=== PATIENT | male | born 1940 | race Caucasian/White ===

== ENCOUNTER → 2019-05-09 | Day surgery (SDC) | payer OTHER ==
[2019-05-06 14:59] VITALS: BMI 29.0
[~2019-05-09] MED LIST: LACTATED RINGERS 1,000 ML IV SCH; LIDOCAINE 1% INJ 10MG/ML (20 ML MDV) ONE; PROPOFOL 10 MG/ML 20 ML VIAL IV ONE
[2019-05-09 09:12] VITALS: RESP 16; TEMP 97.7
--- NOTE | 2019-05-09 10:30 | P.PCN ---
Date of Procedure: 05/09/19 Procedure(s) Performed: Procedure: Total colonoscopy. Preoperative diagnosis: Screening for colon cancer, patient has history of polyps. Postoperative diagnosis: Mild sigmoid diverticulosis with no evidence of acute diverticulitis, strictures, polyps or cancer. Preparation: HalfLytely prep. Sedation: Was provided by anesthesia. Chief clinical history: The patient is a 78-year-old male who is scheduled for this evaluation for screening for neoplasia because of history of polyps. His last exam was 7 or 8 years ago. The patient does no abdominal complaints, bleeding or anemia. Procedure: With the patient on his left lateral decubitus position and after informed consent and adequate sedation, the perianal area was inspected and it did not show any fissures or fistulas. There were no masses felt on digital rectal examination. The Olympus CFH 190L video colonoscope was then inserted in the rectum in the usual fashion and advanced to the cecum. The mucosa appeared healthy. No polyps or tumors were seen. Occasional diverticular orifices seen scattered in the sigmoid with no evidence of acute diverticulitis or strictures. I retroflexed the endoscope in the rectum before the endoscope was withdrawn. The patient tolerated the procedure well. Plan: The patient was reassured. Discussed dietary measures. He will follow up with you as planned.
[2019-05-09 10:43] VITALS: BP 154/91; PULSE 67
== END ==
LOC: ORWHC2ENDO 07:48
DX: Z12.11 Encounter for screening for malignant neoplasm of colon (principal); Z86.010 Personal history of colon polyps; K57.30 Diverticulosis of large intestine without perforation or abscess without bleeding; R10.9 Unspecified abdominal pain; I10 Essential (primary) hypertension; M19.90 Unspecified osteoarthritis, unspecified site; K21.9 Gastro-esophageal reflux disease without esophagitis; Z79.899 Other long term (current) drug therapy; Z88.8 Allergy status to other drugs, medicaments and biological substances
CPT/HCPCS: G0121; J2001; J2704

== ENCOUNTER 2019-06-10 12:41 | Emergency (ER) | payer OTHER ==
[2019-06-10 12:48] VITALS: TEMP 97.5
[2019-06-10] MEDS ORDERED: SODIUM CHLORIDE 0.9% 1,000 ML IV STA (12:54)
--- NOTE | 2019-06-10 13:00 | ED ---
Neuro HPI - General Chief Complaint: Neuro Symptoms/Deficit Stated Complaint: Poss stroke Time Seen by Provider: 06/10/19 12:54 Source: patient, RN notes reviewed, old records reviewed Mode of arrival: ambulatory Limitations: no limitations - History of Present Illness Is the patient presenting with stroke symptoms?: No -: days(s) Initial Comments: This is a 70-year-old male the ER for evaluation. Patient coming of numbness tenderness of lips and mouth. Left-sided face. Symptoms began last night did resolve for manyrecurrent symptoms this morning and now the symptoms have again resolved. Patient recently off aspirin. Patient has no headache chest pain shortness with her bowel pain, currently is asymptomatic and denies complaint. No recent known is no headaches, no chest pain shortness breath or abdominal pain. Location: left face, other (Lips) History of same: No Place: home Quality: tingling Improves With: time Worsens With: none On Anticoagulants: No Associated Symptoms: denies other symptoms Treatments Prior to Arrival: none - Related Data Home Medications: Home Medications Medication Instructions Recorded Confirmed Losartan [Cozaar] 25 mg PO DAILY 05/06/19 06/10/19 Amoxic-Pot Clav 875-125Mg 1 tab PO BID 06/10/19 06/10/19 [Augmentin 875-125] Multivitamins, Thera [Multivitamin 1 tab PO DAILY 06/10/19 06/10/19 (formulary)] methylPREDNISolone [Medrol Dose See Taper PO DIRECTED 06/10/19 06/10/19 Pack] Allergies/Adverse Reactions: Allergies Allergy/AdvReac Type Severity Reaction Status Date / Time methocarbamol [From Robaxin] AdvReac MUSCLES Verified 06/10/19 13:07 BECAME VERY TIGHT" Review of Systems ROS Statement: Those systems with pertinent positive or pertinent negative responses have been documented in the HPI. ROS Other: All systems not noted in ROS Statement are negative. General Exam - General Exam Comments Initial Comments: NIH is 0 Limitations: no limitations General appearance: alert, in no apparent distress Head exam: Present: atraumatic, normocephalic, normal inspection Eye exam: Present: normal appearance, PERRL, EOMI. Absent: scleral icterus, conjunctival injection, periorbital swelling ENT exam: Present: normal exam, mucous membranes moist Neck exam: Present: normal inspection. Absent: tenderness, meningismus, lymphadenopathy Respiratory exam: Present: normal lung sounds bilaterally. Absent: respiratory distress, wheezes, rales, rhonchi, stridor Cardiovascular Exam: Present: regular rate, normal rhythm, normal heart sounds. Absent: systolic murmur, diastolic murmur, rubs, gallop, clicks GI/Abdominal exam: Present: soft, normal bowel sounds. Absent: distended, tenderness, guarding, rebound, rigid Extremities exam: Present: normal inspection, full ROM, normal capillary refill. Absent: tenderness, pedal edema, joint swelling, calf tenderness Back exam: Present: normal inspection Neurological exam: Present: alert, oriented X3, CN II-XII intact Psychiatric exam: Present: normal affect, normal mood Skin exam: Present: warm, dry, intact, normal color. Absent: rash Stroke MDM - Lab Data Result diagrams: 06/10/19 12:50 06/10/19 12:50 Lab Results 06/10/19 06/10/19 06/10/19 Range/Units 12:50 12:50 12:50 WBC 9.6 (3.8-10.6) k/uL RBC 4.93 (4.30-5.90) m/uL Hgb 13.6 (13.0-17.5) gm/dL Hct 41.5 (39.0-53.0) % MCV 84.2 (80.0-100.0) fL MCH 27.5 (25.0-35.0) pg MCHC 32.7 (31.0-37.0) g/dL RDW 14.4 (11.5-15.5) % Plt Count 343 (150-450) k/uL Neutrophils % 66 % Lymphocytes % 21 % Monocytes % 6 % Eosinophils % 5 % Basophils % 1 % Neutrophils # 6.3 (1.3-7.7) k/uL Lymphocytes # 2.0 (1.0-4.8) k/uL Monocytes # 0.6 (0-1.0) k/uL Eosinophils # 0.5 (0-0.7) k/uL Basophils # 0.1 (0-0.2) k/uL PT 9.6 (9.0-12.0) sec INR 0.9 (<1.2) APTT 22.6 (22.0-30.0) sec Sodium 139 (137-145) mmol/L Potassium 4.8 (3.5-5.1) mmol/L Chloride 103 (98-107) mmol/L Carbon Dioxide 27 (22-30) mmol/L Anion Gap 9 mmol/L BUN 29 H (9-20) mg/dL Creatinine 1.16 (0.66-1.25) mg/dL Est GFR (CKD-EPI)AfAm 70 (>60 ml/min/1.73 sqM) Est GFR (CKD-EPI)NonAf 60 (>60 ml/min/1.73 sqM) Glucose 104 H (74-99) mg/dL Calcium 9.9 (8.4-10.2) mg/dL Total Bilirubin 0.4 (0.2-1.3) mg/dL AST 22 (17-59) U/L ALT 26 (21-72) U/L Alkaline Phosphatase 95 (38-126) U/L Troponin I (0.000-0.034) ng/mL Total Protein 7.1 (6.3-8.2) g/dL Albumin 4.4 (3.5-5.0) g/dL 06/10/19 Range/Units 12:50 WBC (3.8-10.6) k/uL RBC (4.30-5.90) m/uL Hgb (13.0-17.5) gm/dL Hct (39.0-53.0) % MCV (80.0-100.0) fL MCH (25.0-35.0) pg MCHC (31.0-37.0) g/dL RDW (11.5-15.5) % Plt Count (150-450) k/uL Neutrophils % % Lymphocytes % % Monocytes % % Eosinophils % % Basophils % % Neutrophils # (1.3-7.7) k/uL Lymphocytes # (1.0-4.8) k/uL Monocytes # (0-1.0) k/uL Eosinophils # (0-0.7) k/uL Basophils # (0-0.2) k/uL PT (9.0-12.0) sec INR (<1.2) APTT (22.0-30.0) sec Sodium (137-145) mmol/L Potassium (3.5-5.1) mmol/L Chloride (98-107) mmol/L Carbon Dioxide (22-30) mmol/L Anion Gap mmol/L BUN (9-20) mg/dL Creatinine (0.66-1.25) mg/dL Est GFR (CKD-EPI)AfAm (>60 ml/min/1.73 sqM) Est GFR (CKD-EPI)NonAf (>60 ml/min/1.73 sqM) Glucose (74-99) mg/dL Calcium (8.4-10.2) mg/dL Total Bilirubin (0.2-1.3) mg/dL AST (17-59) U/L ALT (21-72) U/L Alkaline Phosphatase (38-126) U/L Troponin I <0.012 (0.000-0.034) ng/mL Total Protein (6.3-8.2) g/dL Albumin (3.5-5.0) g/dL - NIH Stroke Scale 1a. Level of Consciousness: (0) alert 1b. LOC Questions: (0) answers correctly 1c. LOC Commands: (0) performs tasks correctly 2. Best Gaze: (0) normal 3. Visual: (0) no visual loss 4. Facial Palsy: (0) normal symmetrical movement 5a. Motor Arm Left: (0) no drift 5b. Motor Arm Right: (0) no drift 6a. Motor Leg Left: (0) no drift 6b. Motor Leg Right: (0) no drift 7. Limb Ataxia: (0) absent 8. Sensory: (0) normal 9. Best Language: (0) no aphasia 10. Dysarthria: (0) normal 11. Extinction/Inattention: (0) no abnormality - Thrombolytic Inclusion/Exclusion Thrombolytic Exclusion Criteria: Symptom Onset > 3 Hours - Medical Decision Making 70 male the ER for evaluation of numbness and tingling of face left-sided face. Paresthesia-type symptoms. Patient encouraged is restart taking aspirin one full aspirin a day. Patient states his symptoms have resolved, is asymptomatic and will follow-up with primary care be discharged currently. - Radiology Data Radiology results: report reviewed (CT brain CTA had not negative for acute disease), image reviewed - EKG Data -: EKG Interpreted by Me (EKG shows NSR rate or 55 bradycardia, VT 150, QRS 90, QTc 413) Past Medical History Past Medical History: Hypertension, Osteoarthritis (OA) Additional Past Medical History / Comment(s): ABDOMINAL PAIN History of Any Multi-Drug Resistant Organisms: None Reported Past Surgical History: Orthopedic Surgery Additional Past Surgical History / Comment(s): LEFT KNEE SURGERY X2 , EXPLORATORY LAPAROTOMY , Past Anesthesia/Blood Transfusion Reactions: No Reported Reaction Past Psychological History: No Psychological Hx Reported Smoking Status: Former smoker Past Alcohol Use History: Occasional Past Drug Use History: None Reported - Past Family History Mother Family Medical History: No Reported History Course Vital Signs 06/10/19 06/10/19 06/10/19 12:43 12:55 13:10 Temperature 97.5 F L Pulse Rate 61 87 78 Respiratory 18 20 18 Rate Blood Pressure 175/79 154/102 147/89 O2 Sat by Pulse 97 99 99 Oximetry 06/10/19 06/10/19 06/10/19 13:25 13:40 14:40 Temperature Pulse Rate 70 64 50 L Respiratory 18 20 18 Rate Blood Pressure 155/91 147/89 145/59 O2 Sat by Pulse 96 98 94 L Oximetry - Reevaluation(s) Reevaluation #1: 06/10/19 15:04 medical record reviewed Reevaluation #2: 06/10/19 15:04 Patient refusing inpatient hospitalization for neurology evaluation Reevaluation #3: 06/10/19 15:05 Patient encouraged to start taking aspirin once daily Disposition Clinical Impression: Facial paresthesia Disposition: HOME SELF-CARE Condition: Good Instructions (If sedation given, give patient instructions): Paresthesia (ED) Is patient prescribed a controlled substance at d/c from ED?: No Referrals: [facility],Clinic [Primary Care Provider] - 1-2 days
[2019-06-10 13:15] LABS: Basophils # (A) 0.1 k/uL (0-0.2); Basophils % (A) 1 %; Eosinophils # (A) 0.5 k/uL (0-0.7); Eosinophils % (A) 5 %; HCT 41.5 % (39.0-53.0); HGB 13.6 gm/dL (13.0-17.5); Lymphocytes % (A) 21 %; MCH 27.5 pg (25.0-35.0); MCHC 32.7 g/dL (31.0-37.0); MCV 84.2 fL (80.0-100.0); Mean Platelet Volume 6.8; Monocytes # (A) 0.6 k/uL (0-1.0); Monocytes % (A) 6 %; Neutrophils # (A) 6.3 k/uL (1.3-7.7); Neutrophils % (A) 66 %; Platelet Count 343 k/uL (150-450); RBC 4.93 m/uL (4.30-5.90); RDW 14.4 % (11.5-15.5); WBC 9.6 k/uL (3.8-10.6)
[2019-06-10 13:23] LABS: Albumin 4.4 g/dL (3.5-5.0); Calcium 9.9 mg/dL (8.4-10.2); INR 0.9 (<1.2); Partial Thromboplastin Time 22.6 sec (22.0-30.0); Potassium 4.8 mmol/L (3.5-5.1); Prothrombin Time 9.6 sec (9.0-12.0); Total Bilirubin 0.4 mg/dL (0.2-1.3); Total Protein 7.1 g/dL (6.3-8.2)
--- NOTE | 2019-06-10 13:30 | XR ---
EXAMINATION TYPE: XR chest 2V DATE OF EXAM: 06/10/2019 COMPARISON: NONE HISTORY: Altered mental status TECHNIQUE: Frontal and lateral views of the chest are obtained. FINDINGS: There are overlying cardiac leads. Patient is rotated. Aorta is dense and possibly ectatic. There is no focal air space opacity, pleural effusion, or pneumothorax seen. The cardiac silhouette size is within normal limits. The osseous structures are intact, arthropathy is noted in the shoul ders, there is an old mid diaphyseal left clavicular fracture now healed. IMPRESSION: No acute cardiopulmonary process.
--- NOTE | 2019-06-10 13:37 | CT ---
EXAMINATION TYPE: CT brain wo con for TPA DATE OF EXAM: 06/10/2019 COMPARISON: 08/27/2010 INDICATION: Electrical feeling to lips DLP: 1038 mGycm, Automated exposure control for dose reduction was used. CONTRAST: None CT of the brain is performed utilizing 3 mm thick sections through the posterior fossa and 3 mm thick sections through the remaining calvarium. Study is performed within 24 hours of arrival to the hosp ital. No abnormal hyperdensity is present to suggest an acute intracranial hemorrhage. No mass lesion is evident. No acute infarcts are evident. Periventricular white matter hypodensity is present. This appears conf luent but somewhat similar to 2009. Findings can be compatible with chronic white matter ischemic bryson nges. Ventricles and sulci are mildly prominent for the patient age. Paranasal sinuses and mastoid air cells within the [id number] are clear. IMPRESSIONS: 1. Atrophy with periventricular white matter ischemic type changes. 2. No acute intracranial changes.
--- NOTE | 2019-06-10 13:42 | CT ---
EXAMINATION TYPE: CT angio head neck DATE OF EXAM: 06/10/2019 HISTORY: Electrical feeling to lips COMPARISON: None CT DLP: 405.6 mGycm. Automated Exposure Control for Dose Reduction was Utilized. TECHNIQUE: CTA scan of the neck is performed with IV Contrast, patient injected with 50 mL of Isovue 370, axial images are obtained, coronal and sagittal reformatted images are reviewed. Three-D recons tructed images are created on an independent workstation and reviewed. FINDINGS: Carotid/Vascular Structures: There is a three-vessel arch. Vertebral arteries are codominant. Common carotid arteries bifurcate into internal and external carotid arteries. No significant flow-limiting stenosis is evident. Note is made of atheromatous plaque on the left. [place]: Vertebral basilar system appears normal. Posterior cerebral vasculature is normal. Middle cerebral artery branches are normal. A1 and M1 segments are normal. A2 segments are normal. Pa tent anterior communicating artery appears to be present. Three-D reconstructed images are reviewed on the computer. Other: None. Soft tissues of the neck appear unremarkable. IMPRESSION: 1. Atheromatous plaquing left carotid bifurcation without significant flow-limiting stenosis. 2. No suspicious stenosis right carotid bifurcation. 3. Normal [place]
[2019-06-10 14:50] VITALS: BP 145/59; PULSE 50; RESP 18
== END 2019-06-10 15:18 | disposition home or self-care (01) ==
LOC: EC 12:41
DX: R20.2 Paresthesia of skin (principal); R20.0 Anesthesia of skin; I10 Essential (primary) hypertension; Z87.891 Personal history of nicotine dependence; Z79.52 Long term (current) use of systemic steroids; Z79.899 Other long term (current) drug therapy; Z88.8 Allergy status to other drugs, medicaments and biological substances
CPT/HCPCS: 36415; 93005; 80053; 84484; 85025; 85610; 85730; 71046; 70496; 70450; 70498; 99285; 96360; Q9967

== ENCOUNTER → 2019-11-14 | Outpatient (CLI) | payer OTHER ==
--- NOTE | 2019-11-14 13:43 | CT ---
EXAMINATION TYPE: CT cervical spine wo con DATE OF EXAM: 11/14/2019 COMPARISON: Cervical spine x-ray October 07, 2013 HISTORY: Left hand numbness and neck pain for [address] DLP: 679.7 mGycm. Automated Exposure Control for Dose Reduction was Utilized. TECHNIQUE: CT scan of the cervical spine is obtained without contrast, axial images are obtained, sa gittal and coronal reformatted images are also reviewed. FINDINGS: Coronal images show slight levoconvex scoliotic curvature centered lower cervical spine. Ce rvical spine is visualized in its entirety from C1 through upper thoracic levels, demonstrates somewh at straightened alignment on sagittal images without evidence of acute fracture or dislocation. Prev ertebral soft tissue appears within normal limits. The C1-C2 articulation is within normal limits on the coronal images. Vertebral body heights are maintained. Advanced anterior spurring with mild disc space narrowing C5-C6 level. Moderate disc space narrowing and anterior spurring C6-C7 level. Left p aracentral spur disc complex effaces anterior thecal sac at C6-C7 level sagittal image 44 and axial i mage 68. Review of axial images shows central disc protrusion effacing the anterior thecal sac axial image 35. Axial images at C3-C4 level from uncovertebral facet degenerative changes bilaterally contributing to [id number] bilateral neural foraminal narrowing. Axial images at C4-C5 levels with central disc protrusion effacing the anterior thecal sac with right -sided uncal vertebral facet degenerative change causing [id number] right-sided neural foramina l narrowing. Axial images at C5-C6 level show right paracentral disc protrusion effacing anterior thecal sac axia l image 60 and causing mild right-sided neural foraminal narrowing Axial images at C6-C7 level show posterior spur disc complex effacing the anterior thecal sac and cau sing moderate to severe left greater than right bilateral neural foraminal narrowing. Axial images at C7-T1 level are within normal limits. Thyroid gland is unremarkable. Lung apices show some mild fibrotic changes and scattered small blebs. IMPRESSION: Multilevel degenerative changes in the cervical spine most prominent at C6-C7 level as de tailed above.
== END ==
LOC: RADCTMAIN 12:13
PROVIDERS: ATTEND Psychiatry & Neurology Neurology
DX: M48.02 Spinal stenosis, cervical region (principal); M50.221 Other cervical disc displacement at C4-C5 level; M47.812 Spondylosis without myelopathy or radiculopathy, cervical region
CPT/HCPCS: 72125

== ENCOUNTER → 2021-02-18 | Outpatient (CLI) | payer MEDICARE ==
--- NOTE | 2021-02-18 16:22 | CT ---
EXAMINATION TYPE: CT iac wo con DATE OF EXAM: 02/18/2021 COMPARISON: HISTORY: Disorders of unspecified acoustic nerve. More issues w/LT side. 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 CT DLP: 142.70 mGycm Automated exposure control for dose reduction was used. Contrast: None Technique: Axial images 1 mm thick sections. Reconstructed images in the coronal plane. Study is with out intravenous contrast. FINDINGS: Mastoid air cells are clear. Semicircular canals appear normal. Internal auditory canals appear ejan l without expansion or erosion. Cochlea appear normal. Incus and Malleus have normal orientation. Mid dle ears and external auditory canals appear normal. Consider correlation with laboratory studies. Note is made of mucosal thickening within the inferior maxillary sinuses bilaterally. Some septal dev iation to the right is noted. Mucosal thickening within ethmoid air cells. IMPRESSION: 1. NORMAL NONCONTRAST INTERNAL AUDITORY CANAL CT.
== END | disposition home or self-care (01) ==
LOC: RADCTMAIN 14:47
PROVIDERS: ATTEND Otolaryngology
DX: H93.3X9 Disorders of unspecified acoustic nerve (principal)
CPT/HCPCS: 70480

== ENCOUNTER → 2022-01-14 | Outpatient (CLI) | payer OTHER ==
--- NOTE | 2022-01-15 03:52 | MR ---
EXAMINATION TYPE: MR hip RT wo con DATE OF EXAM: 01/14/2022 COMPARISON: None HISTORY: Right hip pain, radiates down leg. Multiplanar multiecho imaging of the pelvis and right hip was performed with no contrast. There is some bilateral acetabular spur formation. There is small degenerative cyst formation in both femoral heads. There is bilateral hip joint space narrowing. There is no evidence of avascular necro sis. There is mild right hip joint effusion. There is no evidence of a pelvic mass. There is no free fluid in the pelvis. The right acetabulum is intact. No fracture line seen. Sacroiliac joints are intact. There is no ascites. IMPRESSION: There is bilateral hip joint osteoarthritis. Mild right hip joint effusion consistent with some nonsp ecific synovitis. No fracture seen. No evidence of avascular necrosis.
== END | disposition home or self-care (01) ==
LOC: RADMRIMAIN 16:09
DX: M16.0 Bilateral primary osteoarthritis of hip (principal)

== ENCOUNTER → 2022-06-20 | Outpatient (CLI) | payer OTHER | END | disposition home or self-care (01) | LOC: LABPAT 10:30 | PROVIDERS: ATTEND Orthopaedic Surgery | DX: Z01.812 Encounter for preprocedural laboratory examination (principal); M16.12 Unilateral primary osteoarthritis, left hip | CPT/HCPCS: 87070 ==

== ENCOUNTER 2022-06-28 05:56 | Observation (INO) | payer OTHER ==
[2022-06-23 10:01] VITALS: BMI 28.3
--- NOTE | 2022-06-27 23:35 | HP ---
HISTORY AND PHYSICAL CHIEF COMPLAINT: Left hip pain. 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 He notes groin and thigh pain, worse with weight-bearing activities. He tried therapy with minimal relief. He notes he has been limping and using a cane. He has been taking Motrin and aspirin as needed. He notes the pain significantly limits his normal function and activities. PAST MEDICAL HISTORY: Significant for hypertension, hyperlipidemia, and osteoarthritis. PAST SURGICAL HISTORY: Significant for previous knee surgery along with exploratory laparotomy. CURRENT MEDICATIONS: 1. Losartan. 2. Metoprolol. 3. Ibuprofen. ALLERGIES: He notes allergies to methocarbamol, Naprosyn, meloxicam, simvastatin, and tramadol. FAMILY HISTORY: Noncontributory. SOCIAL HISTORY: Negative for current tobacco or alcohol use. REVIEW OF SYSTEMS: A 16-point review of systems otherwise reviewed and is noncontributory. PHYSICAL EXAMINATION: VITAL SIGNS: On examination, the patient is approximately 5 feet 10 inches, 201 pounds of mesomorphic habitus. HEENT: Exam is nonfocal. NECK: Supple. MUSCULOSKELETAL: On examination of his left hip, he is tender about the anterior aspect. Active range of motion. Left hip flexion 75 degrees, external rotation with hip flexed to 50 degrees, internal rotation -10 degrees with pain. He has a Trendelenburg gait. He has shortening of the left lower extremity compared to the right. His distal neurovascular exam appears intact in the left lower extremity. AP of the pelvis obtained in the office show severe left hip osteoarthrosis with bone- on-bone changes and subchondral sclerosis. IMPRESSION: Left hip severe osteoarthrosis, symptomatic. RECOMMENDATIONS: I talked to the patient at length regarding his condition and treatment options. At this point, he is quite limited because of pain related to his osteoarthrosis despite previous conservative measures. After thorough discussion, he opts to proceed with surgery. We will plan to proceed with left total hip arthroplasty utilizing an anterior approach. Risks and benefits were discussed at length in layman's terms. We will institute DVT prophylaxis postoperatively. MMODL / IJN: [id number] /
[~2022-06-28 05:56] MED LIST changes: +ACETAMINOPHEN TAB 500 MG TAB PO PRN; +DEXAMETHASONE SOD PHOSPHATE 4 MG/ML 1 ML VIAL IV ONE; +LIDOCAINE 1% (10MG/ML) FOR IV START INTRADERMA PRN; -LIDOCAINE 1% INJ 10MG/ML (20 ML MDV) ONE; +MELOXICAM 7.5 MG TAB PO PRN; +MIDAZOLAM 2 MG/2 ML VIAL IV PRN; +ONDANSETRON 4 MG/2 ML VIAL IVP ONE; -PROPOFOL 10 MG/ML 20 ML VIAL IV ONE; +TRANEXAMIC ACID IN NACL,ISO-OS 1,000 MG in SALINE 1 100ML.BAG IVPB PRN
[2022-06-28] MEDS ORDERED: HYDROmorphone 0.5 MG/0.5 ML SYRINGE IVP PRN ×2 (07:00→09:51)
[2022-06-28] MEDS ORDERED: MIDAZOLAM 2 MG/2 ML VIAL IVP ONE (07:11)
[2022-06-28] MEDS ORDERED: fentaNYL (PF) 50 MCG/ML 2 ML AMP IVP ONE (07:11)
[2022-06-28] MEDS ORDERED: DEXAMETHASONE SOD PHOSPHATE 4 MG/ML 1 ML VIAL IVP ONE (07:20)
[2022-06-28] MEDS ORDERED: ONDANSETRON 4 MG/2 ML VIAL IVP ONE (07:20)
[2022-06-28] MEDS ORDERED: SUCCINYLCHOLINE CHLORIDE 200 MG/10 ML VIAL IV ONE (07:39)
[2022-06-28] MEDS ORDERED: SODIUM CHLORIDE 0.9% (PF) 10 ML VIAL ONE (07:39)
[2022-06-28] MEDS ORDERED: LIDOCAINE 2% INJ 20 MG/ML (2 ML VIAL) ONE (07:39)
[2022-06-28] MEDS ORDERED: GLYCOPYRROLATE 0.2 MG/ML 2 ML VIAL ONE (07:39)
[2022-06-28] MEDS ORDERED: TRANEXAMIC ACID IN NACL,ISO-OS 1,000 MG/100 ML BAG ONE (07:39)
[2022-06-28] MEDS ORDERED: HYDROmorphone (PF) 1 MG/ML ONE (07:39)
[2022-06-28] MEDS ORDERED: NEOSTIGMINE 1 MG/ML 10 ML VIAL ONE (07:39)
[2022-06-28] MEDS ORDERED: ePHEDrine 50 MG/ML 1 ML VIAL ONE (07:39)
[2022-06-28] MEDS ORDERED: ROCURONIUM 10 MG/ML (5 ML VIAL) IV ONE (07:39)
[2022-06-28] MEDS ORDERED: ROPIVACAINE 5 MG/ML 30 ML VIAL ONE (07:39)
[2022-06-28] MEDS ORDERED: fentaNYL (PF) 50 MCG/ML 2 ML AMP ONE (07:39)
[2022-06-28] MEDS ORDERED: PROPOFOL 10 MG/ML 20 ML VIAL IV ONE (07:39)
[2022-06-28] MEDS ORDERED: ceFAZolin 1,000 MG in SODIUM CHLORIDE 0.9% 1,000 ML IRRIGATION ONE (08:19)
[2022-06-28] MEDS ORDERED: LACTATED RINGERS 1,000 ML IV ONE (09:15)
[2022-06-28] MEDS ORDERED: NALOXONE 0.4 MG/ML 1 ML VIAL IV PRN (09:51)
[2022-06-28] MEDS ORDERED: HYDROcodone/APAP 5-325MG 1 EACH TAB PO PRN (09:51)
--- NOTE | 2022-06-28 10:14 | P.OP ---
Date of Procedure: 06/28/22 Preoperative Diagnosis: Severe left hip osteoarthrosis Postoperative Diagnosis: Same Procedure(s) Performed: Left total hip arthroplastypress-fitanterior approach Implants: Depuy Corail size 12 collared 135 high offset femoral stem, 36+1.5 cobalt chrome femoral head, 60 mm Webster acetabular shell with neutral polyethylene liner. Anesthesia: PRIYA Surgeon: Hayder Harris Plumber Maintenance #1: Riky Dunham Plumber Maintenance #2: Tl Porter Estimated Blood Loss (ml): 300 Pathology: other (Femoral head) Condition: stable Disposition: PACU Indications for Procedure: The patient's an 81-year-old male who presents with progressive left hip pain secondary to osteoarthrosis despite conservative measures. A discussion of the risks and benefits of operative intervention versus continued conservative measures made with patient. He opted proceed with surgery. Operative risks to include infection, neurovascular injury and development of blood clots, fracture, ligamentous capsule, instability, and possible need for subsequent procedures was discussed. Informed consent was obtained. Operative Findings: As below Description of Procedure: The patient was brought to the operating room, and after induction of spinal anesthesia was placed supine on the Yovana table. Positioning was checked with fluoroscopy. The left hip was then prepped and draped in a normal fashion. A 12 cm incision was then made starting 2 fingerbreadths distal and 3 finger breaths posterior to the ASIS in line with the proximal femur. The skin was incised sharply. Subcutaneous tissues were divided sharply. Electrocautery was used for hemostasis. The fascia was split in line with skin incision. The interval between the sartorius and tensor fascia susan was then bluntly developed. The posterior fascia was opened with electrocautery. The lateral circumflex vessels were identified and cauterized prior to sectioning. A retractor was placed along the superior femoral neck as well as the anterior acetabular rim. A wide capsulotomy was performed. The neck cut was then made at a 45 angle to the shaft approximately 1 1/2 cm above the level of the lesser trochanter. The head was extracted. Attention was then paid towards preparing the acetabular. Anterior and posterior retractors were placed. The remaining capsular labral tissue sharply debrided clearly defining the acetabular margins. I began reaming with a 49 mm reamer taking care to initially medialize then reaming at 45 of abduction and 20 of anteversion. Sequential reaming is performed up to 59 mm. A trial 30 mm acetabular shell was inserted in the same orientation and was fully seated. There was good rim fit and stability. Positioning was checked with fluoroscopy. A 60 mm acetabular shell was inserted again at 45 of abduction and 20 of anteversion. This was fully seated. There was good rim fit and stability. I did place a 6.5 x 30 mm cancellus screw posteriorly with good purchase. Again fluoroscopy was used to check the adequacy of placement. A neutral polyethylene liner was gently impacted. Care was taken to avoid any soft tissue interposition. Pulsatile la vage was utilized. Attention was then paid towards preparing the proximal femur. The central region was cleared of soft tissue. A canal finder was used to find the femoral canal. Sequential broaching was performed up to size 12 taking care to lateralize proximally. A calcar mill was used to fashion the medial calcar. There was good rotational stability. A high offset 135 neck along with a 36 mm +1.5 head was placed. The hip was gently reduced. Fluoroscopy was used to check the adequacy of positioning along with leg lengths. I felt both were good. The hip was gently dislocated. The trial components were removed. The final size 12 collared 135, high offset press-fit femoral stem was inserted parallel to the posterior cortex. This was fully seated and there was good rotational stability. A 36 mm 1.5 head was placed. This was gently impacted. The hip was then gently reduced. Final fluoroscopic view showed adequate placement implant along with zoroastrianism of leg length. Stability was checked with 80 of external rotation and 60 of extension of the right hip. The wound was irrigated with sterile lavage. The fascia was closed with running 0 Vicryl suture. There was minimal drainage therefore a deep drain was not placed. The second dose of IV TXA was given. The subcutaneous tissues were reapproximated interrupted 2-0 Vicryl sutures. The skin was reapproximated with 3-0 subcuticular strata fix suture. Skin tape and adhesive was applied. A sterile dressing was applied. The patient was then awoken from sedation and transferred to recovery room in good condition. Blood loss was estimated at 300 mL. No complications were incurred. Sponge and needle counts were correct at the end of the case. Riky ELDRIDGE and Jorge Alberto ELDRIDGE assisted during the major components is case to include exposure, bone resection, implantation, and closure.
--- NOTE | 2022-06-28 10:26 | FL ---
Intraoperative/procedural fluoroscopic services were provided. Total fluoroscopy time is 38 seconds w ith a total of 0 submitted images to PACS. Please see the operative/procedural note for further deta ils.
--- NOTE | 2022-06-28 10:29 | XR ---
EXAMINATION TYPE: XR Hip Limited LT, XR Hip Limited LT DATE OF EXAM: 06/28/2022 9:48 AM INDICATION: Patient age:Male; 81 years old; Reason for study: Left Hip-Ant; PHH. Intraoperative/procedural fluoroscopic services were provided. Total fluoroscopy time is 38.3 seconds with a total of 1 submitted images to PACS. Please see the operative/procedural note for further det ails.
--- NOTE | 2022-06-28 11:19 | P.ANPRN ---
Procedure Note - Anesthesia - Nerve Block Performed Left Erector Spinae Time Out Performed: Yes (07:10) Date of Procedure: 06/28/22 Procedure Start Time: :10 Procedure Stop Time: :17 Location of Patient: PreOp Indication: Acute Post-Operative Pain, Requested by Surgeon (Dr Harris) Sedation Type: Sedate with meaningful contact maintained Preparation: Sterile Prep Position: Sitting Catheter: None Needle Types: Pajunk Needle Gauge: 21 Ultrasound used to visualize needle placement: Yes Ultrasound used to observe medication spread: Yes Injectate: 0.5% Ropivacaine (see comment for volume) (15cc +10cc PF Normal saline) Blood Aspirated: No Pain Paresthesia on Injection Noted: No Resistance on Injection: Normal Image Stored and Saved: Yes Events: Uneventful and Well Tolerated
[2022-06-28] MEDS: HYDROcodone/APAP 7.5-325MG 1 EACH TAB PO PRN (12:06)
--- NOTE | 2022-06-28 14:45 | P.CONS ---
History of Present Illness - Reason for Consult Consult date: 06/28/22 Medical Management Requesting physician: Hayder Harris - History of Present Illness History of Presenting Illness: Patient is a very pleasant 81-year-old male with a past medical history of hypertension. He is currently admitted under orthopedic surgery team status post left total hip arthroplasty completed by Dr. Epperson secondary to severe left hip osteoarthritis. We have been consulted for medical management throughout patient's hospitalization. Patient seen and fully evaluated at the bedside. He has been tolerating oral intake and denies having any postoperative nausea and vomiting. Patient does report pain in left knee reports he feels that it is locked up and patient has a history of left knee replacement. I notified him to medicate patient at this time. Patient denies having any headache, lightheadedness, dizziness, chest pain, palpitations, shortness of breath, or experiencing any numbness/tingling in his extremities. Review of systems: Pertinent positives and negatives as discussed in HPI, a complete review of systems was performed and all other systems are negative. Physical exam: Vital signs reviewed and stable. General: Nontoxic, no distress and appears stated age. Derm: Skin warm and dry, normal coloration for ethnicity. Head: Atraumatic, normocephalic and symmetric. Eyes: EOMs intact, no lid lag, and anicteric sclera Mouth: no lip lesions, mucus membranes moist Cardiovascular: regular rate and rhythm with normal S1S2, no murmur, positive posterior tibial pulses bilaterally, and cap refill < 2 seconds. Lungs: Respirations even, regular, and unlabored on room air. Lungs CTA bilaterally, no rhonchi, no rales, no wheezing, and no accessory muscle usage. Abdominal: soft, nontender to palpation, no guarding, no appreciable organomegaly Ext: ROM intact. No gross muscle atrophy, no edema, no contractures Neuro: Speech clear, face symmetrical and CN II-XII grossly intact with no noted focal neuro deficits Psych: Alert and oriented to person, place, time, and situation. Appropriate and pleasant affect. Assessment and Plan of Care: Severe left hip osteoarthritis Status post left total hip arthroplasty -Management per primary admitting orthopedic surgery team including pain management, DVT prophylaxis, weightbearing, and PT/OT. -Currently DVT prophylaxis with Xarelto. Hypertension -Monitor vital signs and continue daily medication regimen with losartan and metoprolol. Thank you for allowing us to participate in the care of this pleasant patient. Do not hesitate to contact us with questions. Someone can be reached from the [facility] [place] hospitalist group all hours of the day at [phone] or via [employer]. I reviewed the documentation as provided by the BJ above, who is the original author of this note. I agree with the documented assessment and plan, with the following changes: none Past Medical History Past Medical History: Hypertension, Osteoarthritis (OA) Additional Past Medical History / Comment(s): ABDOMINAL PAIN History of Any Multi-Drug Resistant Organisms: None Reported Past Surgical History: Orthopedic Surgery Additional Past Surgical History / Comment(s): LEFT KNEE SURGERY X2 , EXPLORATORY LAPAROTOMY , colonoscopy, Past Anesthesia/Blood Transfusion Reactions: No Reported Reaction Smoking Status: Former smoker - Past Family History Mother Family Medical History: No Reported History Medications and Allergies Home Medications Medication Instructions Recorded Confirmed Type Losartan [Cozaar] 25 mg PO DAILY 05/06/19 06/27/22 History Ibuprofen [Motrin] 800 mg PO Q8H 06/27/22 06/27/22 History Metoprolol Succinate (ER) [Toprol 25 mg PO DAILY 06/27/22 06/27/22 History XL] Multivitamins, Thera [Multivitamin 1 tab PO DAILY 06/27/22 06/27/22 History (formulary)] Aspirin [Adult Low Dose Aspirin EC] 81 mg PO BID #60 tab 06/29/22 Rx Docusate [Colace] 100 mg PO DAILY #30 capsule 06/29/22 Rx Ferrous Sulfate [Iron (65 MG 325 mg PO BID #60 tab 06/29/22 Rx Elemental)] HYDROcodone/APAP 7.5-325MG [Industry 1 each PO Q6HR PRN #28 tab 06/29/22 Rx 7.5] Allergies Allergy/AdvReac Type Severity Reaction Status Date / Time methocarbamol [From Robaxin] AdvReac MUSCLES Verified 06/28/22 06:42 BECAME VERY TIGHT" Physical Exam Vitals: Vital Signs Temp Pulse Pulse Resp BP Pulse Ox 06/28/22 14:00 97.8 F 95 20 120/74 98 06/28/22 11:34 97.5 F L 84 16 146/82 95 06/28/22 10:55 91 18 146/77 97 06/28/22 10:40 98 18 155/82 99 06/28/22 10:25 97 18 143/83 98 06/28/22 10:10 97.2 F L 106 H 22 136/79 99 06/28/22 07:29 56 L 18 143/80 98 06/28/22 06:48 98.0 F 64 20 159/82 97 Intake and Output 06/27/22 06/28/22 06/28/22 22:59 06:59 14:59 Intake Total 300 1151 Output Total 300 Balance 300 851 Intake: IV 300 1151 Output: Estimated Blood Loss 300 Other: Weight 92 kg Results CBC & Chem 7: 06/29/22 06:54 06/29/22 06:54
[2022-06-28] MEDS ORDERED: ONDANSETRON 4 MG/2 ML VIAL IVP PRN (18:26)
[2022-06-28] MEDS ORDERED: SENNOSIDES-DOCUSATE SODIUM 1 EACH TAB PO SCH (21:00)
[2022-06-29 07:35] VITALS: BP 109/64; PULSE 81; RESP 18; TEMP 99.3
[2022-06-29] MEDS: HYDROcodone/APAP 7.5-325MG 1 EACH TAB PO PRN (07:41)
[2022-06-29] MEDS ORDERED: METOPROLOL SUCCINATE (ER) 25 MG TAB.ER.24H PO SCH (09:00)
[2022-06-29] MEDS ORDERED: RIVAROXABAN 10 MG TAB PO SCH (09:00)
[2022-06-29] MEDS ORDERED: LOSARTAN 25 MG TAB PO SCH (09:00)
[2022-06-29] MEDS ORDERED: MULTIVITAMINS, THERA 1 EACH TAB PO SCH (09:00)
[2022-06-29 10:29] LABS: Basophils # (A) 0.02 X 10*3/uL (0.00-0.10); Basophils % (A) 0.2 %; Eosinophils # (A) 0.01 X 10*3/uL (0.04-0.35); Eosinophils % (A) 0.1 %; HCT 34.2 % (39.6-50.0); HGB 10.4 g/dL (13.0-17.0); Immature Grans, Automated 0.4 %; Lymphocytes # (A) 1.52 X 10*3/uL (0.90-5.00); Lymphocytes % (A) 13.6 %; MCH 27.4 pg (27.0-32.0); MCHC 30.4 g/dL (32.0-37.0); MCV 90.2 fL (80.0-97.0); Mean Platelet Volume 9.8 fL (9.5-12.2); Monocytes # (A) 1.05 X 10*3/uL (0.20-1.00); Monocytes % (A) 9.4 %; NRBC Per 100 WBC 0 /100 WBCS (0.0-0.0); Neutrophils % (A) 76.3 %; Platelet Count 295 X 10*3/uL (140-440); RBC 3.79 X 10*6/uL (4.40-5.60); RDW 13.4 % (11.5-14.5); WBC 11.15 X 10*3/uL (4.50-10.00)
[2022-06-29 10:38] LABS: African American GFR (CKD) 54.2 (60.0-200.0); Albumin 3.6 g/dL (3.8-4.9); Albumin/Globulin Ratio 1.8 (1.60-3.17); Anion Gap 8.9 mmol/L (10.00-18.00); BUN/Creat Ratio 25.64 Ratio (12.00-20.00); Blood Urea Nitrogen 35.9 mg/dL (9.0-27.0); Calcium 8.4 mg/dL (8.7-10.3); Carbon Dioxide 26.1 mmol/L (20.0-27.5); Magnesium 1.7 mg/dL (1.5-2.4); Non-African American GFR(CKD) 46.8 (60.0-200.0); Potassium 4.4 mmol/L (3.5-5.5); Total Bilirubin 0.3 mg/dL (0.30-1.20); Total Protein 5.6 g/dL (6.2-8.2)
--- NOTE | 2022-06-29 11:17 | P.PN ---
Subjective Progress Note Date: 06/29/22 Principal diagnosis: Status post direct anterior left total hip arthroplasty Patient was evaluated today at bedside, he is resting in his hospital chair. Patient was up and ambulating with physical therapy, he did stairs with no difficulty. He notes some soreness in the anterior/lateral thigh. He denies any chest pain or shortness of breath at this time. He did have some urinary retention yesterday in the evening, this has improved. He states he is urinating with no difficulties at this time. Objective - Vital Signs Vital signs: Vital Signs Temp 99.3 F 06/29/22 07:33 Pulse 81 06/29/22 07:42 Resp 18 06/29/22 07:42 BP 109/64 06/29/22 07:33 Pulse Ox 96 06/29/22 07:33 FiO2 Intake & Output 06/28/22 06/29/22 06/29/22 18:59 06:59 18:59 Intake Total 1151 590 120 Output Total 300 400 Balance 851 190 120 Weight 92 kg Intake: IV 1151 Oral 590 120 Output: Urine 400 Straight 400 Estimated Blood Loss 300 Other: # Voids 0 - Exam Left lower extremity: Incision is clean, dry, and intact. The foam dressin is in good condition. There is minimal soft tissue swelling and ecchymosis surrounding the medial and lateral aspects of the incision. Calf is soft, no tenderness with palpation. Plantar flexion, dorsiflexion, EHL, FHL are intact. Sensory exam to light touch throughout the extremity is intact, dorsal pedis pulses 2+. - Labs CBC & Chem 7: 06/29/22 06:54 06/29/22 06:54 Labs: Abnormal Lab Results - Last 24 Hours (Table) 06/29/22 06/29/22 Range/Units 06:54 06:54 WBC 11.15 H (4.50-10.00) X 10*3/uL RBC 3.79 L (4.40-5.60) X 10*6/uL Hgb 10.4 L (13.0-17.0) g/dL Hct 34.2 L (39.6-50.0) % MCHC 30.4 L (32.0-37.0) g/dL Immature Gran # 0.05 H (0.00-0.04) X 10*3/uL Neutrophils # 8.50 H (1.80-7.70) X 10*3/uL Monocytes # 1.05 H (0.20-1.00) X 10*3/uL Eosinophils # 0.01 L (0.04-0.35) X 10*3/uL Anion Gap 8.90 L (10.00-18.00) mmol/L BUN 35.9 H (9.0-27.0) mg/dL Est GFR (CKD-EPI)AfAm 54.2 L (60.0-200.0) Est GFR (CKD-EPI)NonAf 46.8 L (60.0-200.0) BUN/Creatinine Ratio 25.64 H (12.00-20.00) Ratio Glucose 113 H (70-110) mg/dL Calcium 8.4 L (8.7-10.3) mg/dL Total Protein 5.6 L (6.2-8.2) g/dL Albumin 3.6 L (3.8-4.9) g/dL Assessment and Plan Assessment: Postoperative day #1 status post right anterior left total hip arthroplasty Plan: Pain control, plan for discharge home on [place] 7.5 mg/325 mg DVT prophylaxis, aspirin 81 mg twice a day for 1 month Wound care instructions were discussed, this including icing and elevating of the extremity along with showering instructions Home health care, this to include therapy and nursing after discharge Medical recommendations Discharge planning: Patient stable for discharge home today Time with Patient: Less than 30
--- NOTE | 2022-06-29 11:21 | P.DS ---
Providers Date of admission: 06/28/2022 Expected date of discharge: 06/29/22 Attending physician: Hayder Harris Consults: 06/28/22 09:55 Consult Physician Routine Consulting Provider: Camille Murphy Consult Reason/Comments: Medical Management s/p left total hip arthroplasty Do you want consulting provider notified?: Yes Primary care physician: [facility] Hospital Course: Date of admission: 06/28/2022 Date of discharge: 06/29/2022 Admission diagnosis: Status post direct anterior left total hip arthroplasty Discharge diagnosis: Same Attending physician: Dr. Harris Surgical procedures: Direct anterior left total hip arthroplasty Brief history: Patient is a 81-year-old male with a history of progressive primary left hip osteoarthritis. At this point patient has failed conservative treatment measures and has opted to proceed with a elective direct anterior left total hip arthroplasty. Hospital course: Details of patient's surgery can be found in operative report. Patient tolerated the procedure well and was subsequently transported to orthopedic floor. Patient's orthopeidc and medical care was provided daily. Patient had daily laboratory tests performed for evaluation of overall blood counts. Patient had daily physical therapy to include strengthening range of motion as well as education with walker ambulation. Patient was treated with Xarelto for their postoperative DVT prophylaxis during their inpatient stay. Patient was noted to have a relatively uneventful postoperative course. Patient reported satisfactory pain control with oral pain medications by postoperative day 0. Patient showed satisfactory progress with physical therapy. Patient moved steadily through the program and had no difficulty meeting the goals by postoperative day 1. Given patient's otherwise satisfactory course and having met physical therapy goals, plan is to discharge patient home on postoperative day 1. Discharge condition/disposition: Patient will be discharged home in stable condition. Discharge medications: Instructions are given on resumption of patient's normal daily medications per primary care recommendation, in addition patient will be prescribed [place] 7.5 mg/325 mg, Colace 100 mg, ferrous sulfate 325 mg. Discharge instructions: 1. Wound care and infection precautions, keep incision dry and covered while showering, no lotions, creams, moisturizers. No soaking, tubs, pools, hottubs. Do not scrub over the incision. 2. Weight-bear as tolerated with walker / cane until follow-up. 3. Ice and elevate when necessary. Do not exceed 20 minutes per hour with ice pack. 4. Utilize compression sleeve until seen at first follow up appointment. 5. Visiting nursing care. 6. Home physical therapy. 7. Pain meds and anticoagulants per prescription. 8. Pain medication has potential to cause constipation. Increase oral fluid and fiber intake. Contact primary care provider if you have not had a bowel movement within 48 hours after discharge 9. No anti-inflammatory medication until discussed at first post operative visit, this including Motrin, Aleve, Mobic, Diclofenac. 10. Follow up in office at 2 weeks postop with Jorge Alberto Porter PA-C/Riky Butterfield 11. Follow up with your primary care doctor 7-10 days after discharge. 12. Contact [facility] with any questions, . Procedures: Direct anterior left total hip arthroplasty Patient Condition at Discharge: Good Plan - Discharge Summary Discharge Rx Participant: No New Discharge Prescriptions: New Docusate [Colace] 100 mg PO DAILY #30 capsule HYDROcodone/APAP 7.5-325MG [[place] 7.5] 1 each PO Q6HR PRN #28 tab PRN Reason: Pain Aspirin [Adult Low Dose Aspirin EC] 81 mg PO BID #60 tab Ferrous Sulfate [Iron (65 MG Elemental)] 325 mg PO BID #60 tab No Action Losartan [Cozaar] 25 mg PO DAILY Multivitamins, Thera [Multivitamin (formulary)] 1 tab PO DAILY Ibuprofen [Motrin] 800 mg PO Q8H Metoprolol Succinate (ER) [Toprol XL] 25 mg PO DAILY Discharge Medication List Losartan [Cozaar] 25 mg PO DAILY 05/06/19 [History] Ibuprofen [Motrin] 800 mg PO Q8H 06/27/22 [History] Metoprolol Succinate (ER) [Toprol XL] 25 mg PO DAILY 06/27/22 [History] Multivitamins, Thera [Multivitamin (formulary)] 1 tab PO DAILY 06/27/22 [History] Aspirin [Adult Low Dose Aspirin EC] 81 mg PO BID #60 tab 06/29/22 [Rx] Docusate [Colace] 100 mg PO DAILY #30 capsule 06/29/22 [Rx] Ferrous Sulfate [Iron (65 MG Elemental)] 325 mg PO BID #60 tab 06/29/22 [Rx] HYDROcodone/APAP 7.5-325MG [[place] 7.5] 1 each PO Q6HR PRN #28 tab 06/29/22 [Rx] Follow up Appointment(s)/Referral(s): Riky Dunham, PAC [PHYSICIAN INSTRUCTIONAL DEVELOPER] - 07/14/22 10:40 am [facility] [NON-STAFF] - As Needed (walker) [facility] [NON-STAFF] - As Needed [facility] [Primary Care Provider] - 1 Week Patient Instructions/Handouts: Total Hip Replacement (DC) Activity/Diet/Wound Care/Special Instructions: Orthopedic Discharge Instructions: 1. Wound care and infection precautions, keep incision dry and covered while showering, no lotions, creams, moisturizers. No soaking, pools, hot tubs. Do not scrub over incision. 2. Weight-bear as tolerated with walker / cane until follow-up. 3. Ice and elevate when necessary. Do not exceed 20 minutes per hour with ice pack. 4. Utilize compression sleeve until seen at first follow up appointment. 5. Pain meds and anticoagulants per prescription. 6. Pain medication has potential to cause constipation. Increase oral fluid and fiber intake. Contact primary care provider if you have not had a bowel movement within 48 hours after discharge. 7. No anti-inflammatory medication until discussed at first post operative visit, this including Motrin, Aleve, Mobic, Diclofenac. 8. Follow up in office at 2 weeks postop with Jorge Alberto Porter PA-C / Riky Dunham PA-C 9. Follow up with your primary care doctor 7-10 days after discharge. 10. Contact [facility] with any questions, . Discharge Disposition: HOME WITH HOME HEALTH SERVICES
--- NOTE | 2022-06-29 14:07 | P.PN ---
Subjective Progress Note Date: 06/29/22 History of Presenting Illness: Patient is a very pleasant 81-year-old male with a past medical history of hypertension. He is currently admitted under orthopedic surgery team status po st left total hip arthroplasty completed by Dr. Epperson secondary to severe left hip osteoarthritis. We have been consulted for medical management throughout patient's hospitalization. Physical exam: Patient seen and fully evaluated at bedside this morning. Patient was sitting up in the chair and appeared to be doing very well. Patient reports he continues to have slight pain in his left knee but otherwise denies any pain or discomfort from left hip. Morning labs reviewed and stable. WBC 11.15. Hemoglobin 10.4. Slight elevation of BUN 35.9. Vital signs reviewed and stable. General: Nontoxic, no distress and appears stated age. Derm: Skin warm and dry, normal coloration for ethnicity. Head: Atraumatic, normocephalic and symmetric. Eyes: EOMs intact, no lid lag, and anicteric sclera Mouth: no lip lesions, mucus membranes moist Cardiovascular: regular rate and rhythm with normal S1S2, no murmur, positive posterior tibial pulses bilaterally, and cap refill < 2 seconds. Lungs: Respirations even, regular, and unlabored on room air. Lungs CTA bilaterally, no rhonchi, no rales, no wheezing, and no accessory muscle usage. Abdominal: soft, nontender to palpation, no guarding, no appreciable organomegaly Ext: ROM intact. No gross muscle atrophy, no edema, no contractures Neuro: Speech clear, face symmetrical and CN II-XII grossly intact with no noted focal neuro deficits Psych: Alert and oriented to person, place, time, and situation. Appropriate and pleasant affect. Assessment and Plan of Care: Severe left hip osteoarthritis Status post left total hip arthroplasty -Management per primary admitting orthopedic surgery team including pain management, DVT prophylaxis, weightbearing, and PT/OT. -Currently DVT prophylaxis with Xarelto. Hypertension -Monitor vital signs and continue daily medication regimen with losartan and metoprolol. Thank you for allowing us to participate in the care of this pleasant patient. Do not hesitate to contact us with questions. Someone can be reached from the [facility] [place] hospitalist group all hours of the day at [phone] or via [employer]. I reviewed the documentation as provided by the BJ above, who is the original author of this note. I agree with the documented assessment and plan, with the following changes: none Objective - Vital Signs Vital signs: Vital Signs Temp 99.3 F 06/29/22 07:33 Pulse 81 06/29/22 07:33 Resp 18 06/29/22 07:33 BP 109/64 06/29/22 07:33 Pulse Ox 96 06/29/22 07:33 FiO2 Intake & Output 06/28/22 06/29/22 06/29/22 18:59 06:59 18:59 Intake Total 1151 590 Output Total 300 400 Balance 851 190 Weight 92 kg Intake: IV 1151 Oral 590 Output: Urine 400 Straight 400 Estimated Blood Loss 300 Other: # Voids 0 - Labs CBC & Chem 7: 06/29/22 06:54 06/29/22 06:54
== END 2022-06-29 13:35 | disposition home health service (06) ==
LOC: OR 05:56 → 4SSUR 09:48 → INTOOBSV 06-29 08:32 → OR 06-29 08:32 → UNDODISIN 06-29 13:35
PROVIDERS: ADMIT Orthopaedic Surgery; ATTEND Orthopaedic Surgery
DX: M16.12 Unilateral primary osteoarthritis, left hip (principal); I10 Essential (primary) hypertension; E78.5 Hyperlipidemia, unspecified; M25.562 Pain in left knee; R33.9 Retention of urine, unspecified; Z79.1 Long term (current) use of non-steroidal anti-inflammatories (NSAID); Z79.899 Other long term (current) drug therapy; Z88.5 Allergy status to narcotic agent; Z88.6 Allergy status to analgesic agent; Z88.8 Allergy status to other drugs, medicaments and biological substances; Z87.891 Personal history of nicotine dependence; Z96.652 Presence of left artificial knee joint; Z98.890 Other specified postprocedural states
CPT/HCPCS: 97116; 97162; 97535; 97165; 64999; 86900; 86901; 80053; 83735; 85025; 86850; 88300; 73501; 27130; G0378; C1776; J2250; J0330; J1100; J2710; J0690 ×3; J2405; J3010; J1170 ×2; J2795; J2704; J2001

== ENCOUNTER → 2023-11-28 | Outpatient (CLI) | payer OTHER | END | disposition home or self-care (01) | LOC: LABPAT 11:03 | PROVIDERS: ATTEND Orthopaedic Surgery | DX: Z01.812 Encounter for preprocedural laboratory examination (principal); Z22.322 Carrier or suspected carrier of Methicillin resistant Staphylococcus aureus; M16.11 Unilateral primary osteoarthritis, right hip | CPT/HCPCS: 86850; 86900; 86901; 87070 ==

== ENCOUNTER 2023-12-05 08:25 | Observation (INO) | payer OTHER ==
[2023-11-30 09:51] VITALS: BMI 28.3
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
[~2023-12-05 08:25] MED LIST changes: -DEXAMETHASONE SOD PHOSPHATE 4 MG/ML 1 ML VIAL IV ONE; -LACTATED RINGERS 1,000 ML IV SCH; -LIDOCAINE 1% (10MG/ML) FOR IV START INTRADERMA PRN; -MIDAZOLAM 2 MG/2 ML VIAL IV PRN; +TRANEXAMIC 1,000 MG/100ML-NACL 1,000 MG in SALINE 1 100ML.BAG IVPB PRN; -TRANEXAMIC ACID IN NACL,ISO-OS 1,000 MG in SALINE 1 100ML.BAG IVPB PRN
[2023-12-05] MEDS: LACTATED RINGERS 1,000 ML IV SCH (08:46)
[2023-12-05] MEDS ORDERED: ONDANSETRON 4 MG/2 ML VIAL IVP ONE (09:12)
[2023-12-05] MEDS ORDERED: fentaNYL (PF) 50 MCG/1 ML VIAL IVP ONE (09:16)
[2023-12-05] MEDS ORDERED: MIDAZOLAM 2 MG/2 ML VIAL IVP ONE (09:16)
[2023-12-05] MEDS ORDERED: fentaNYL (PF) 50 MCG/ML 2 ML AMP ONE (10:24)
[2023-12-05] MEDS ORDERED: PROPOFOL 10 MG/ML 20 ML VIAL IV ONE (10:24)
[2023-12-05] MEDS ORDERED: ROPIVACAINE 5 MG/ML 30 ML VIAL ONE (10:24)
[2023-12-05] MEDS ORDERED: LIDOCAINE 1% INJ 10MG/ML (20 ML MDV) ONE (10:24)
[2023-12-05] MEDS ORDERED: GLYCOPYRROLATE 0.2 MG/ML 2 ML VIAL ONE (10:24)
[2023-12-05] MEDS ORDERED: HYDROmorphone (PF) 1 MG/ML ONE (10:24)
[2023-12-05] MEDS ORDERED: NEOSTIGMINE 1 MG/ML 10 ML VIAL ONE (10:24)
[2023-12-05] MEDS ORDERED: SUCCINYLCHOLINE CHLORIDE 200 MG/10 ML VIAL IV ONE (10:24)
[2023-12-05] MEDS ORDERED: ePHEDrine 50 MG/ML 1 ML VIAL ONE (10:24)
[2023-12-05] MEDS ORDERED: ROCURONIUM 10 MG/ML (5 ML VIAL) IV ONE (10:24)
[2023-12-05] MEDS ORDERED: TRANEXAMIC 1,000 MG/100ML-NACL PREMIX BAG ONE (10:24)
--- NOTE | 2023-12-05 11:02 | P.ANPRN ---
Procedure Note - Anesthesia - Nerve Block Performed Right Ronal Single Time Out Performed: Yes ([id number]) Date of Procedure: 12/05/23 Procedure Start Time: :16 Procedure Stop Time: :21 Location of Patient: PreOp Indication: Acute Post-Operative Pain, Requested by Surgeon Specifically requested for management of pain by DrNetta: Hayder Harris Sedation Type: Sedate with meaningful contact maintained Preparation: Sterile Prep Position: Supine Catheter: None Needle Types: Pajunk Needle Gauge: 21 Ultrasound used to visualize needle placement: Yes Ultrasound used to observe medication spread: Yes Injectate: 0.5% Ropivacaine (see comment for volume) (30cc) Blood Aspirated: No Pain Paresthesia on Injection Noted: No Resistance on Injection: Normal Image Stored and Saved: Yes Events: Uneventful and Well Tolerated
[2023-12-05] MEDS ORDERED: ceFAZolin 1,000 MG in SODIUM CHLORIDE 0.9% 1,000 ML IRRIGATION ONE (11:06)
[2023-12-05] MEDS ORDERED: LACTATED RINGERS 1,000 ML IV ONE ×2 (12:00→13:43)
[2023-12-05] MEDS ORDERED: HYDROcodone/APAP 5-325MG 1 EACH TAB PO PRN (12:35)
[2023-12-05] MEDS ORDERED: HYDROmorphone 0.5 MG/0.5 ML SYRINGE IVP PRN (12:35)
[2023-12-05] MEDS ORDERED: MAGNESIUM HYDROXIDE 2,400 MG/30 ML CUP PO PRN (12:35)
[2023-12-05] MEDS ORDERED: hydrOXYzine pamoate 25 MG CAP PO PRN (12:35)
[2023-12-05] MEDS ORDERED: NALOXONE 0.4 MG/ML 1 ML VIAL IV PRN (12:35)
--- NOTE | 2023-12-05 12:54 | P.OP ---
Date of Procedure: 12/05/23 Preoperative Diagnosis: Right hip severe osteoarthrosis Postoperative Diagnosis: Same Procedure(s) Performed: Right total hip arthroplastypress-fitanterior approach Implants: Depuy Corail size [id number] standard collared press-fit femoral stem, 36mm+1.5 cobalt chrome femoral head, 62 mm [place] acetabular shell with neutral polyethylene liner. 6.5 mm x 25 mm and 6.5 mm x 30 mm screws were placed. Anesthesia: GETA Surgeon: Hayder Harris Interface Developer #1: Riky Dunham Estimated Blood Loss (ml): 200 Pathology: none sent Condition: stable Disposition: PACU Indications for Procedure: The patient's 83-year-old male presents with progressive right hip pain secondary to osteoarthrosis despite conservative measures. A discussion of the risks and benefits of operative intervention versus continued conservative measures was made with patient. He opted to proceed with surgery. Operative risks to include infection, neurovascular injury, development of blood clots, fracture, leg length discrepancy, possible instability, possible component loosening/failure and need for subsequent procedures was discussed. Informed consent was obtained. Operative Findings: As below Description of Procedure: The patient was brought to the operating room, and after induction of spinal anesthesia was placed supine on the Yovana table. Positioning was checked with fluoroscopy. The right hip was then prepped and draped in a normal fashion. A 12 cm incision was then made starting 2 fingerbreadths distal and 3 finger breaths posterior to the ASIS in line with the proximal femur. The skin was incised sharply. Subcutaneous tissues were divided sharply. Electrocautery was used for hemostasis. The fascia was split in line with skin incision. The interval between the sartorius and tensor fascia susan was then bluntly developed. The posterior fascia was opened with electrocautery. The lateral circumflex vessels were identified and cauterized prior to sectioning. A retrac tor was placed along the superior femoral neck as well as the anterior acetabular rim. A wide capsulotomy was performed. The neck cut was then made at a 45 angle to the shaft approximately 1 1/2 cm above the level of the lesser trochanter. The head was extracted. Attention was then paid towards preparing the acetabular. Anterior and posterior retractors were placed. The remaining capsular labral tissue sharply debrided clearly defining the acetabular margins. I began reaming with a 53 mm reamer taking care to initially medialize then reaming at 45 of abduction and 20 of anteversion. Sequential reaming is performed up to 61 mm. A trial 62 mm acetabular shell was inserted in the same orientation and was fully seated. There was good rim fit and stability. Positioning was checked with fluoroscopy. The final 62 mm acetabular shell was inserted again at 45 of abduction and 20 of anteversion. This was fully seated. I did place a 6.5 mm x 25 mm along with a 6.5 mm x 30 mm cancellous screw posterior superior for additional fixation.. Again fluoroscopy was used to check the adequacy of placement. A neutral polyethylene liner was gently impacted. Care was taken to avoid any soft tissue interposition. Pulsatile lavage was utilized. Attention was then paid towards preparing the proximal femur. The central region was cleared of soft tissue. A canal finder was used to find the femoral canal. Sequential broaching was performed up to size 12 taking care to lateralize proximally. A calcar mill was used to fashion the medial calcar. There was good rotational stability. A standard neck along with a 36 mm +1.5 head was placed. The hip was gently reduced. Fluoroscopy was used to check the adequacy of positioning along with leg lengths. I felt both were good. The hip was gently dislocated. The trial components were removed. The final size 12 collared standard press-fit femoral stem was inserted parallel to the posterior cortex. This was fully seated and there was good rotational stability. A 36 mm +1.5 head was placed. This was gently impacted. The hip was then gently reduced. Final fluoroscopic view showed adequate placement implant along with methodist of leg length. Stability was checked with 80 of external rotation and 60 of extension of the right hip. The wound was irrigated with sterile lavage. The fascia was closed with running 0 Vicryl suture. There was minimal drainage therefore a deep drain was not placed. The second dose of IV TXA was given. The subcutaneous tissues were reapproximated interrupted 2-0 Vicryl sutures. The skin was reapproximated with 3-0 subcuticular strata fix suture. Skin tape and adhesive was applied. A sterile dressing was applied. The patient was then awoken from sedation and transferred to recovery room in good condition. Blood loss was estimated at 200 mL. No complications were incurred. Sponge and needle counts were correct at the end of the case. Riky ELDRIDGE assisted during the major components is case to include exposure, bone resection, implantation, and closure.
--- NOTE | 2023-12-05 13:12 | FL ---
EXAMINATION TYPE: FL guidance operating room, XR Hip Limited RT DATE OF EXAM: 12/05/2023 Comparison: None Clinical History: 83-year-old male Rt Hip-Ant Findings: 36 SEC FLUORO, [id number]. 5 images during right total hip arthroplasty submitted. Impression: Intraoperative fluoroscopy as above.
--- NOTE | 2023-12-05 13:19 | XR ---
EXAMINATION TYPE: XR Hip Limited RT DATE OF EXAM: 12/05/2023 Comparison: None Clinical History: 83-year-old male Status post hip surgery, assess surgical alignment Findings: Image shows placement of right total hip arthroplasty. Acetabular cup and femoral stem components of the prosthesis are well seated without prosthetic fracture. Alignment grossly anatomic. Scattered sof t tissue air related to recent operation. Impression: Uncomplicated postoperative appearance right hip total arthroplasty.
[2023-12-05] MEDS: HYDROmorphone 0.5 MG/0.5 ML SYRINGE IVP PRN ×3 (13:22→20:26)
[2023-12-05] MEDS: HYDROcodone/APAP 7.5-325MG 1 EACH TAB PO PRN ×2 (16:36→23:29)
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
[2023-12-05] MEDS: SENNOSIDES-DOCUSATE SODIUM 1 EACH TAB PO SCH (20:26)
[2023-12-05] MEDS: ONDANSETRON 4 MG/2 ML VIAL IVP PRN (23:31)
[2023-12-06] MEDS: HYDROcodone/APAP 7.5-325MG 1 EACH TAB PO PRN ×4 (04:02→23:27)
[2023-12-06] MEDS: LACTATED RINGERS 1,000 ML IV SCH (04:06)
[2023-12-06] MEDS: ONDANSETRON 4 MG/2 ML VIAL IVP PRN (05:50)
[2023-12-06] MEDS: HYDROmorphone 0.5 MG/0.5 ML SYRINGE IVP PRN (05:50)
[2023-12-06 08:46] LABS: Basophils # (A) 0.03 X 10*3/uL (0.00-0.10); Basophils % (A) 0.3 %; Eosinophils # (A) 0 X 10*3/uL (0.04-0.35); Eosinophils % (A) 0 %; HCT 30.5 % (39.6-50.0); HGB 9.5 g/dL (13.0-17.0); Lymphocytes # (A) 0.96 X 10*3/uL (0.90-5.00); Lymphocytes % (A) 8.2 %; MCH 28.4 pg (27.0-32.0); MCHC 31.1 g/dL (32.0-37.0); Mean Platelet Volume 9.5 FL (9.5-12.2); Monocytes # (A) 1.07 X 10*3/uL (0.20-1.00); Monocytes % (A) 9.2 %; NRBC Per 100 WBC 0 X 10*3/uL (0.00-0.01); Neutrophils # (A) 9.56 X 10*3/uL (1.80-7.70); Platelet Count 235 X 10*3/uL (140-440); RBC 3.35 X 10*6/uL (4.40-5.60); RDW 13.6 % (11.5-14.5); WBC 11.66 X 10*3/uL (4.50-10.00)
[2023-12-06] MEDS: RIVAROXABAN 10 MG TAB PO SCH (10:17)
[2023-12-06] MEDS ORDERED: SODIUM CHLORIDE 0.9% 500 ML 500 ML IV ONE (10:26)
--- NOTE | 2023-12-06 10:37 | P.PN ---
Subjective Progress Note Date: 12/06/23 Patient is an 83-year-old male with hypertension, dyslipidemia, and impaired fasting glucose who presented for elective right direct anterior total hip arthroplasty. He tolerated the procedure well without any immediate postoperative complications. No blood pressures on his p.m. blood pressure medications were held. Patient seen and examined at bedside. He is really lightheaded this morning mostly with standing and walking to the bathroom. He denies any chest discomfort or shortness of breath. He is asking for his blood pressure medications to be restarted we discussed restarting his beta-emily but continuing to hold his losartan. Vital signs reviewed General: Nontoxic, no distress, appears at stated age Cardiovascular: S1S2 reg, no murmur, positive posterior tibial pulse bilateral, Lungs: Decreased bs bilateral, no rhonchi, no rales, no accessory muscle use Abdominal: Soft, nontender to palpation, no guarding, no appreciable organomegaly Ext: No gross muscle atrophy, no edema b/l lower extremities, no contractures Neuro: CN II-XI grossly intact, no focal neuro deficits Psych: Alert, oriented, appropriate affect Assessment/Plan: Pt is an 83-year-old male status post right direct anterior total hip arthroplasty Acute Blood Loss Anemia - Follow CBC - No indication for transfusion - Start Ferrous sulfate 325 mg PO daily Hypertension Dyslipidemia History of PVCs Mild aortic stenosis -Resume metoprolol 25 mg daily, Continue to hold Cozaar 25 mg twice daily if BP -Patient is not chronically on cholesterol medication -Follow blood pressures Dizziness -Nursing staff did check orthostatic blood pressures laying he was 105/62 with a pulse of 71, sitting he was 102/64 with a pulse of 90, and standing his blood pressure dropped to 81/54 with a pulse of 66 -Will give 0.9 normal saline 500 cc bolus and recheck orthostatics this afternoon. Imaging: None new Data Review: Include CBC which is remarkable for white blood cell count 11.66, hemoglobin 9.5 DVT prophylaxis: Xarelto 10 mg daily Thank you for allowing us to participate in the care of this pleasant patient. Do not hesitate to contact us with questions. Someone can be reached from the [facility] hospitalist group all hours of the day at [phone] or via perfect serve. Objective - Vital Signs Vital signs: Vital Signs Temp 97.8 F 12/06/23 07:43 Pulse 66 12/06/23 10:26 Resp 20 12/06/23 07:43 BP 105/62 12/06/23 10:26 Pulse Ox 94 L 12/06/23 08:56 FiO2 Intake & Output 12/05/23 12/06/23 12/06/23 18:59 06:59 18:59 Intake Total 3001 290 Output Total 200 Balance 2801 290 Weight 95.9 kg Intake: IV 3001 Intake, IV Titration 290 Amount Lactated Ringers 1,000 ml 240 @ 20 mls/hr IV .Q24H [facility] Rx#:[id number] ceFAZolin 2 gm In Sodium 50 Chloride 0.9% 50 ml @ 100 mls/hr IVPB ONCE PRN Rx# :[id number] Output: Estimated Blood Loss 200 Other: # Voids 2 - Labs CBC & Chem 7: 12/06/23 06:27 Labs: Abnormal Lab Results - Last 24 Hours (Table) 12/06/23 Range/Units 06:27 WBC 11.66 H (4.50-10.00) X 10*3/uL RBC 3.35 L (4.40-5.60) X 10*6/uL Hgb 9.5 L (13.0-17.0) g/dL Hct 30.5 L (39.6-50.0) % MCHC 31.1 L (32.0-37.0) g/dL Neutrophils # 9.56 H (1.80-7.70) X 10*3/uL Monocytes # 1.07 H (0.20-1.00) X 10*3/uL Eosinophils # 0 L (0.04-0.35) X 10*3/uL
[2023-12-06] MEDS: METOPROLOL SUCCINATE (ER) 25 MG TAB.ER.24H PO SCH (10:57)
--- NOTE | 2023-12-06 10:58 | P.PN ---
Subjective Progress Note Date: 12/06/23 Principal diagnosis: Right hip osteoarthritis Patient was seen at bedside this morning sitting up in chair with dressing present over the right anterior hip. Patient says he justworking with physical therapy and while he does walk around the room he said he did get a little bit dizzy at different points. Patient is wondering if he can stay one more night for additional pain control and therapy. Patient says he does have a walker home. Patient says his and daughter will help him out at home. Patient says she has urinated several times since surgery yesterday. Patient denies chest pain, fever, shortness of breath, nausea, vomiting, change in vision, loss of bowel/bladder control. Objective - Vital Signs Vital signs: Vital Signs Temp 97.8 F 12/06/23 07:43 Pulse 68 12/06/23 07:43 Resp 20 12/06/23 07:43 BP 122/57 12/06/23 07:43 Pulse Ox 94 L 12/06/23 08:56 FiO2 Intake & Output 12/05/23 12/06/23 12/06/23 18:59 06:59 18:59 Intake Total 3001 290 Output Total 200 Balance 2801 290 Weight 95.9 kg Intake: IV 3001 Intake, IV Titration 290 Amount Lactated Ringers 1,000 ml 240 @ 20 mls/hr IV .Q24H [facility] Rx#:[id number] ceFAZolin 2 gm In Sodium 50 Chloride 0.9% 50 ml @ 100 mls/hr IVPB ONCE PRN Rx# :[id number] Output: Estimated Blood Loss 200 Other: # Voids 2 - Exam Right hip: Incision is clean, dry, and intact. The exofin fusion tape is in good condition. There is minimal soft tissue swelling and ecchymosis surrounding the medial and lateral aspects of the incision. Calf is soft, no tenderness with palpation. Plantar flexion, dorsiflexion, EHL, FHL are intact. Sensory exam to light touch throughout the extremity is intact, dorsal pedis pulses 2+. - Labs CBC & Chem 7: 12/06/23 06:27 Labs: Abnormal Lab Results - Last 24 Hours (Table) 12/06/23 Range/Units 06:27 WBC 11.66 H (4.50-10.00) X 10*3/uL RBC 3.35 L (4.40-5.60) X 10*6/uL Hgb 9.5 L (13.0-17.0) g/dL Hct 30.5 L (39.6-50.0) % MCHC 31.1 L (32.0-37.0) g/dL Neutrophils # 9.56 H (1.80-7.70) X 10*3/uL Monocytes # 1.07 H (0.20-1.00) X 10*3/uL Eosinophils # 0 L (0.04-0.35) X 10*3/uL Assessment and Plan Assessment: 1. Right hip osteoarthritis - Postop day #1 status post right total hip arthroplasty Plan: 1. Right hip osteoarthritis - right total hip arthroplasty performed yesterday, 12/05/2023. Patient stable at bedside this morning. Patient did work with therapy, however, patient did get dizzy at several points during session. Plan to keep patient 1 more night for additional pain control and therapy. We'll continue to follow patient during standard hospital. Pain medication as needed. Weightbearing as tolerated with walker. Plan for discharge home tomorrow with health services. 2. Appreciate medical management 3. Pain management - [place] 4. DVT prophylaxis - Xarelto in hospital 5. GI prophylaxis - senna 6. PT/OT - weightbearing as tolerated with walker 7. Encourage incentive spirometer use 8. Discharge planning - plan for discharge home tomorrow with health services Time with Patient: Less than 30
[2023-12-06] MEDS: FERROUS SULFATE 325 MG TAB PO SCH (11:58)
[2023-12-06] MEDS ORDERED: CALCIUM CARBONATE 500 MG CHEWABLE PO PRN (13:20)
[2023-12-06] MEDS: PANTOPRAZOLE 40 MG TABLET PO SCH (15:51)
[2023-12-06] MEDS: SENNOSIDES-DOCUSATE SODIUM 1 EACH TAB PO SCH (21:18)
[2023-12-07 03:07] VITALS: PULSE 75
[2023-12-07] MEDS: LACTATED RINGERS 1,000 ML IV SCH (05:43)
[2023-12-07] MEDS: PANTOPRAZOLE 40 MG TABLET PO SCH (06:11)
[2023-12-07] MEDS: HYDROcodone/APAP 7.5-325MG 1 EACH TAB PO PRN ×2 (06:11→14:11)
[2023-12-07] MEDS: RIVAROXABAN 10 MG TAB PO SCH (08:17)
[2023-12-07] MEDS: METOPROLOL SUCCINATE (ER) 25 MG TAB.ER.24H PO SCH (08:17)
[2023-12-07 09:42] VITALS: BP 129/67; TEMP 97.9
[2023-12-07 10:52] VITALS: RESP 18
--- NOTE | 2023-12-07 11:15 | P.PN ---
Subjective Progress Note Date: 12/07/23 Patient is an 83-year-old male with hypertension, dyslipidemia, and impaired fasting glucose who presented for elective right direct anterior total hip arthroplasty. He tolerated the procedure well without any immediate postoperative complications. No blood pressures on his p.m. blood pressure medications were held. Postop orthostatic hypotension. Patient seen and examined at bedside. He is doing well today. No more lightheaded or dizziness. No chest pain, shortness of breath, nausea, vomiting. He did well with therapy. He is hoping to be discharged today. We did discuss that he should remain off of his Cozaar twice daily and only take it at night. He should check his blood pressures daily and he has a cuff at home. [facility] when to resume his twice daily Cozaar Vital signs reviewed General: Nontoxic, no distress, appears at stated age Cardiovascular: S1S2 reg, no murmur, positive posterior tibial pulse bilateral, Lungs: Decreased bs bilateral, no rhonchi, no rales, no accessory muscle use Abdominal: Soft, nontender to palpation, no guarding, no appreciable org anomegaly Ext: No gross muscle atrophy, no edema b/l lower extremities, no contractures Neuro: CN II-XI grossly intact, no focal neuro deficits Psych: Alert, oriented, appropriate affect Assessment/Plan: Pt is an 83-year-old male status post right direct anterior total hip arthroplasty Acute Blood Loss Anemia - Follow CBC - No indication for transfusion -Ferrous sulfate daily for the next 30 days Hypertension Dyslipidemia History of PVCs Mild aortic stenosis -metoprolol 25 mg daily, resume losartan 25 mg at night, continue to hold a.m. dose -Patient is not chronically on cholesterol medication -Follow blood pressures Dizziness, resolved Orthostatic hypotension, resolved Patient optimized for discharged at the discretion of orthopedic surgery. Home medication reconciliation addressed. Instructions added to discharge regarding blood pressure medications and follow-up needs. Imaging: None new Data Review: None new DVT prophylaxis: Xarelto 10 mg daily Thank you for allowing us to participate in the care of this pleasant patient. Do not hesitate to contact us with questions. Someone can be reached from the [facility] hospitalist group all hours of the day at [phone] or via perfect serve. Objective - Vital Signs Vital signs: Vital Signs Temp 97.9 F 12/07/23 08:00 Pulse 75 12/07/23 08:00 Resp 18 12/07/23 10:35 BP 129/67 12/07/23 08:00 Pulse Ox 94 L 12/07/23 08:00 FiO2 Intake & Output 12/06/23 12/07/23 12/07/23 18:59 06:59 18:59 Other: # Voids 2 2 2 - Labs CBC & Chem 7: 12/06/23 06:27
[2023-12-07] MEDS: FERROUS SULFATE 325 MG TAB PO SCH (11:31)
--- NOTE | 2023-12-07 13:02 | P.PN ---
Subjective Progress Note Date: 12/07/23 Principal diagnosis: Right hip osteoarthritis Patient was seen at bedside this morning sitting up in chair with legs elevated. Patient says she did do well with therapy this morning and walked down the barry and up-and-down steps. Patient says he has urinated several times since surgery. Patient says he is looking forward to going home later stay. Patient denies any other issues at this time. Patient says the pain is controlled with medication. He says he does have Trego at home as well as aspirin. Patient denies chest pain, fever, shortness breath, nausea, vomiting, change in vision, loss of bowel/bladder control. Objective - Vital Signs Vital signs: Vital Signs Temp 97.9 F 12/07/23 08:00 Pulse 75 12/07/23 08:00 Resp 18 12/07/23 10:35 BP 129/67 12/07/23 08:00 Pulse Ox 94 L 12/07/23 08:00 FiO2 Intake & Output 12/06/23 12/07/23 12/07/23 18:59 06:59 18:59 Other: # Voids 2 2 2 - Exam Right hip: Incision is clean, dry, and intact. The exofin fusion tape is in good condition. There is minimal soft tissue swelling and ecchymosis surrounding the medial and lateral aspects of the incision. Calf is soft, no tenderness with palpation. Plantar flexion, dorsiflexion, EHL, FHL are intact. Sensory exam to light touch throughout the extremity is intact, dorsal pedis pulses 2+. - Labs CBC & Chem 7: 12/06/23 06:27 Assessment and Plan Assessment: 1. Right hip osteoarthritis - Postop day #2 status post right total hip arthroplasty Plan: 1. Right hip osteoarthritis - right total hip arthroplasty performed 12/05/2023. Patient stable at bedside this morning. Patient did do well with PT this morning. Pain medication as needed. Weightbearing as tolerated with walker. Plan for discharge home tomorrow with health services. 2. Appreciate medical management 3. Pain management - Trego; patient does have Trego at home. 4. DVT prophylaxis - Xarelto in hospital; has aspirin at home. take 81 mg BID x 30 days 5. GI prophylaxis - senna 6. PT/OT - weightbearing as tolerated with walker 7. Encourage incentive spirometer use 8. Discharge planning - discharge home today with health services Time with Patient: Less than 30
--- NOTE | 2023-12-07 13:05 | P.DS ---
Providers Date of admission: 12/05/23 08:26 Expected date of discharge: 12/07/23 Attending physician: Hayder Harris Consults: 12/05/23 12:35 Consult Physician Routine Consulting Provider: Meredith Jimenez Consult Reason/Comments: medical management s/p direct anterior right total hip arthroplasty Do you want consulting provider notified?: Yes Primary care physician: [facility] Hospital Course: Date of admission: 12/05/2023 Date of discharge: 12/07/2023 Admission diagnosis: Right hip osteoarthritis Discharge diagnosis: Same Attending physician: Dr. Harris Surgical procedures: Right total hip arthroplasty Brief history: Patient is a 83-year-old male with a history of progressive primary right hip osteoarthritis. At this point patient has failed conservative treatment measures and has opted to proceed with a elective right total hip arthroplasty. Hospital course: Details of patient's surgery can be found in operative report. Patient tolerated the procedure well and was subsequently transported to orthopedic floor. Patient's orthopeidc and medical care was provided daily. Patient had daily laboratory tests performed for evaluation of overall blood counts. Patient had daily physical therapy to include strengthening range of motion as well as education with walker ambulation. Patient was treated with Xarelto for their postoperative DVT prophylaxis during their inpatient stay. Patient was noted to have a relatively uneventful postoperative course. Patient reported satisfactory pain control with oral pain medications by postoperative day 1. Patient showed satisfactory progress with physical therapy. Patient moved steadily through the program and had no difficulty meeting the goals by postoperative day 1. Given patient's otherwise satisfactory course and having met physical therapy goals, plan is to discharge patient home with health services on postoperative day 1. Discharge condition/disposition: Patient will be discharged home with health services in stable condition. Discharge medications: Instructions are given on resumption of patient's normal daily medications per primary care recommendation. Patient does have Norden and aspirin at home. To take aspirin 81 mg twice a day 30 days. Discharge instructions: 1. Wound care and infection precautions, keep incision dry and covered while showering, no lotions, creams, moisturizers. No soaking, tubs, pools, hottubs. Do not scrub over the incision. 2. Weight-bear as tolerated with walker / cane until follow-up. 3. Ice and elevate when necessary. Do not exceed 20 minutes per hour with ice pack. 4. Utilize compression sleeve until seen at first follow up appointment. 5. Visiting nursing care. 6. Home physical therapy. 7. Pain meds and anticoagulants per prescription. 8. Pain medication has potential to cause constipation. Increase oral fluid and fiber intake. Contact primary care provider if you have not had a bowel movement within 48 hours after discharge 9. No anti-inflammatory medication until discussed at first post operative visit, this including Motrin, Aleve, Mobic, Diclofenac. 10. Follow up in office at 2 weeks postop with Jorge Alberto Porter PA-C / Riky Dunham PA-C 11. Follow up with your primary care doctor 7-10 days after discharge. 12. Contact [facility] with any questions, . Assessment: Right hip osteoarthritis Procedures: Right total hip arthroplasty Patient Condition at Discharge: Good Plan - Discharge Summary New Discharge Prescriptions: New Ferrous Sulfate [Iron (65 MG Elemental)] 325 mg PO W/LUNCH #30 tab Continue Multivitamins, Thera [Multivitamin (formulary)] 1 tab PO DAILY Acetaminophen [Tylenol Extra Strength] 500 - 1,000 mg PO BID PRN PRN Reason: Pain Metoprolol Succinate (ER) [Toprol XL] 25 mg PO DAILY Aspirin [Adult Low Dose Aspirin EC] 81 mg PO BID #60 tab Changed Losartan [Cozaar] 25 mg PO HS #0 Discharge Medication List Metoprolol Succinate (ER) [Toprol XL] 25 mg PO DAILY 06/27/22 [History] Multivitamins, Thera [Multivitamin (formulary)] 1 tab PO DAILY 06/27/22 [History] Aspirin [Adult Low Dose Aspirin EC] 81 mg PO BID #60 tab 06/29/22 [Rx] Acetaminophen [Tylenol Extra Strength] 500 - 1,000 mg PO BID PRN 11/30/23 [History] Ferrous Sulfate [Iron (65 MG Elemental)] 325 mg PO W/LUNCH #30 tab 12/07/23 [Rx] Losartan [Cozaar] 25 mg PO HS #0 12/07/23 [Rx] Follow up Appointment(s)/Referral(s): Riky Dunham PAC [PHYSICIAN CARRY OUT CLERK AND SHELF STOCKER] - 12/21/23 10:20 am [facility] [NON-STAFF] - 1-2 Days ([facility] will call you to schedule your in home physical therapy visits. ) Patient Instructions/Handouts: Anterior Hip Replacement (DC), Anterior Hip Replacement (GEN) Activity/Diet/Wound Care/Special Instructions: Orthopedic Discharge Instructions: 1. Wound care and infection precautions, keep incision dry and covered while showering, no lotions, creams, moisturizers. No soaking, pools, hot tubs. Do not scrub over incision. 2. Weight-bear as tolerated with walker / cane until follow-up. 3. Ice and elevate when necessary. Do not exceed 20 minutes per hour with ice pack. 4. Utilize compression sleeve until seen at first follow up appointment. 5. Pain meds and anticoagulants per prescription. 6. Pain medication has potential to cause constipation. Increase oral fluid and fiber intake. Contact primary care provider if you have not had a bowel movement within 48 hours after discharge. 7. No anti-inflammatory medication until discussed at first post operative visit, this including Motrin, Aleve, Mobic, Diclofenac. 8. Follow up in office at 2 weeks postop with Jorge Alberto Porter PA-C / Riky Dunham PA-C 9. Follow up with your primary care doctor 7-10 days after discharge. 10. Contact [facility] with any questions, . Keep incision clean, dry, intact. While showering, cover fusion tape with Saran wrap. Keep fusion tape on until follow-up appointment in office 2 weeks Blood pressure Medications: Please take your metoprolol in the morning and your Losartan at night. Take your blood pressure daily and if it is consistently greater than 130 on the top you can consider increasing your Losartan back to twice daily with the permission of your primary care physician. Discharge Disposition: HOME WITH HOME HEALTH SERVICES
== END 2023-12-07 14:32 | disposition home health service (06) ==
LOC: OR 08:25 → 4SSUR 08:26
PROVIDERS: ADMIT Orthopaedic Surgery; ATTEND Orthopaedic Surgery
DX: M16.11 Unilateral primary osteoarthritis, right hip (principal); G89.18 Other acute postprocedural pain; D62 Acute posthemorrhagic anemia; I95.1 Orthostatic hypotension; R42 Dizziness and giddiness; I10 Essential (primary) hypertension; E78.5 Hyperlipidemia, unspecified; I49.3 Ventricular premature depolarization; I35.0 Nonrheumatic aortic (valve) stenosis; Z87.891 Personal history of nicotine dependence; Z79.82 Long term (current) use of aspirin; Z79.899 Other long term (current) drug therapy; Z88.6 Allergy status to analgesic agent
CPT/HCPCS: 96376 ×2; 96361 ×2; 96365; 96375 ×2; 94760; 93005; 97116; 97161; 97530; 97535; 97166; 64447; 85025; 73501; 27130; G0378 ×3; C1776; J2250; J0330; J2710; J0690 ×3; J2405 ×2; J2001; J3010 ×2; J1170 ×3; J2795; J2704

== ENCOUNTER 2024-01-07 10:42 | Emergency (ER) | payer OTHER ==
[2024-01-07 11:13] VITALS: RESP 16; TEMP 98.5
[2024-01-07] MEDS: SODIUM CHLORIDE 0.9% 1,000 ML IV STA (11:23)
[2024-01-07] MEDS: HYDROmorphone 0.5 MG/0.5 ML SYRINGE IVP STA (11:24)
[2024-01-07 11:28] LABS: Basophils % (A) 0 %; Eosinophils # (A) 0.2 k/uL (0-0.7); Eosinophils % (A) 2 %; HCT 36.1 % (39.0-53.0); HGB 11.7 gm/dL (13.0-17.5); Lymphocytes # (A) 1.4 k/uL (1.0-4.8); Lymphocytes % (A) 12 %; MCHC 32.4 g/dL (31.0-37.0); MCV 89.5 fL (80.0-100.0); Mean Platelet Volume 6.8; Monocytes # (A) 0.6 k/uL (0-1.0); Monocytes % (A) 5 %; Neutrophils # (A) 9.9 k/uL (1.3-7.7); Neutrophils % (A) 81 %; Platelet Count 256 k/uL (150-450); RBC 4.04 m/uL (4.30-5.90); RDW 13.9 % (11.5-15.5); WBC 12.3 k/uL (3.8-10.6)
[2024-01-07] MEDS: ONDANSETRON 4 MG/2 ML VIAL IVP STA (11:33)
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
[2024-01-07 11:40] LABS: ALT 17 U/L (4-49); AST 20 U/L (17-59); African American GFR (CKD) 64 (>60 ml/min/1.73 sqM); Albumin 3.7 g/dL (3.5-5.0); Alkaline Phosphatase 114 U/L (38-126); Amylase 102 U/L (30-110); Anion Gap 7 mmol/L; Blood Urea Nitrogen 31 mg/dL (9-20); Calcium 9.7 mg/dL (8.4-10.2); Carbon Dioxide 25 mmol/L (22-30); Chloride 106 mmol/L (98-107); Glucose 98 mg/dL (74-99); Lipase 107 U/L (23-300); Non-African American GFR(CKD) 55 (>60 ml/min/1.73 sqM); Potassium 4.4 mmol/L (3.5-5.1); Sodium 138 mmol/L (137-145); Total Bilirubin 0.7 mg/dL (0.2-1.3); Total Protein 6.2 g/dL (6.3-8.2)
--- NOTE | 2024-01-07 13:12 | CT ---
EXAMINATION TYPE: CT abdomen pelvis wo con DATE OF EXAM: 01/07/2024 COMPARISON: None HISTORY: Abdominal pain CT DLP: 1055.4 mGycm Automated exposure control for dose reduction was used. TECHNIQUE: Helical acquisition of images was performed from the lung bases through the pelvis. FINDINGS: The lung bases are clear. There is no abnormality of the gallbladder and there is no biliary ductal dilatation. There is no focal mass or organomegaly involving the liver, pancreas spleen or adrenal glands. There is no renal calcification or hydronephrosis. There is mild renal atrophy. The bowel loops are normal in caliber and there is no dilatation or obstruction. There is no free int raperitoneal air or fluid. No inflammatory changes identified in the abdomen. There is no pelvic mass or adenopathy. There are bilateral hip prostheses. There are 2 adjacent fluid-filled masses in the anterior right pelvic soft tissues adjacent to the an terior pelvic musculature. The largest measures approximately 5.5 cm in AP dimension. These possibly represent hematomas and clinical correlation is recommended. IMPRESSION: 1. 2 adjacent fluid-filled collections in the anterior right pelvis, anterior to the right hip joint and adjacent to the anterior pelvic musculature, raising the question of hematomas. Clinical correla tion is recommended. 3. Mild renal atrophy. 2. Bilateral hip prostheses. . 4. No acute changes within the abdomen
[2024-01-07 14:36] VITALS: BP 129/75; PULSE 53
== END 2024-01-07 14:20 | disposition home or self-care (01) ==
LOC: EC 10:42
DX: S70.01XA Contusion of right hip, initial encounter (principal); N26.1 Atrophy of kidney (terminal); I10 Essential (primary) hypertension; E66.9 Obesity, unspecified; Z79.82 Long term (current) use of aspirin; Z79.899 Other long term (current) drug therapy; Z88.6 Allergy status to analgesic agent; Z88.8 Allergy status to other drugs, medicaments and biological substances; Z87.891 Personal history of nicotine dependence; Z68.29 Body mass index [BMI] 29.0-29.9, adult; Z96.643 Presence of artificial hip joint, bilateral; X58.XXXA Exposure to other specified factors, initial encounter
CPT/HCPCS: 99284; 96374; 96375; 96361; 36415; 80053; 82150; 83605; 83690; 85025; 74176; J2405; J1170

== ENCOUNTER → 2024-04-26 | Outpatient (CLI) | payer OTHER ==
--- NOTE | 2024-04-26 15:06 | NM ---
EXAMINATION TYPE: NM bone 3 phase DATE OF EXAM: 04/26/2024 COMPARISON: X-ray 04/10/2024 CLINICAL INDICATION: Male, 83 years old with history of T84.84XA PAIN DUE TO INTERNAL ORTHOPEDIC PROS TH DE; Triple phase bone scintigraphy was performed following the injection of 23.7 mCi Tc 99m MDP. Immedia te images and 3 hours post injection images acquired. FINDINGS: There is slightly asymmetric flow to the right hip. Photopenic defects are seen involving the bilater al proximal femur. There is faint uptake along the greater trochanter of the right femur. Abnormal up take involving the knees suggestive of osteoarthritis bilaterally. IMPRESSION: There is faint asymmetric uptake involving the right greater trochanter with slightly asymmetric incr eased flow. This could be related to prior surgery. Early loosening or infection is felt less likely but not excluded. Correlate with the tagged WBC study as clinically warranted.
== END | disposition home or self-care (01) ==
LOC: RADNMMAIN 10:35
PROVIDERS: ATTEND Orthopaedic Surgery
DX: M79.662 Pain in left lower leg (principal)
CPT/HCPCS: 78315; A9503

== ENCOUNTER → 2024-05-08 | Outpatient (CLI) | payer OTHER | END | disposition home or self-care (01) | LOC: RADMRIMAIN 16:10 | PROVIDERS: ATTEND Orthopaedic Surgery Hand Surgery | DX: M79.641 Pain in right hand (principal) ==

== ENCOUNTER → 2025-01-27 | Outpatient (CLI) | payer OTHER | END | disposition home or self-care (01) | LOC: LABPAT 12:10 | PROVIDERS: ATTEND Orthopaedic Surgery | DX: Z01.812 Encounter for preprocedural laboratory examination (principal); T84.84XA Pain due to internal orthopedic prosthetic devices, implants and grafts, initial encounter; Z96.641 Presence of right artificial hip joint | CPT/HCPCS: 86850; 86900; 86901; 87070 ==

== ENCOUNTER 2025-02-04 10:00 | Inpatient (IN) | payer OTHER ==
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
[2025-02-11] MEDS ORDERED: TRANEXAMIC 1,000 MG/100ML-NACL 1,000 MG in SALINE 1 100ML.BAG IVPB PRN (05:00)
[2025-02-11] MEDS ORDERED: MELOXICAM 7.5 MG TAB PO PRN (05:00)
[2025-02-11] MEDS: ACETAMINOPHEN TAB 500 MG TAB PO PRN (09:03)
[2025-02-11] MEDS: LACTATED RINGERS 1,000 ML IV SCH (09:03)
[2025-02-11] MEDS: DEXAMETHASONE SOD PHOSPHATE 4 MG/ML 1 ML VIAL IV ONE (09:03)
[2025-02-11] MEDS: ONDANSETRON 4 MG/2 ML VIAL IVP ONE (09:03)
[2025-02-11] MEDS: MIDAZOLAM 2 MG/2 ML VIAL IV PRN (09:21)
--- NOTE | 2025-02-11 09:32 | P.ANPRN ---
Procedure Note - Anesthesia - Nerve Block Performed Left Ronal Single Time Out Performed: Yes Date of Procedure: 02/11/25 Procedure Start Time: : Procedure Stop Time: Location of Patient: PreOp Indication: Acute Post-Operative Pain, Analgesia, Requested by Surgeon Sedation Type: Sedate with meaningful contact maintained Preparation: Sterile Prep Position: Supine Catheter: None Needle Types: Pajunk Needle Gauge: 21 Ultrasound used to visualize needle placement: Yes Ultrasound used to observe medication spread: Yes Injectate: 0.5% Ropivacaine (see comment for volume) ([id number]) Blood Aspirated: No Pain Paresthesia on Injection Noted: No Resistance on Injection: Normal Image Stored and Saved: Yes Events: Uneventful and Well Tolerated
[2025-02-11] MEDS: IV FLUID CONTINUATION 1,000 ML IV ONE ×2 (09:39→13:20)
[2025-02-11] MEDS ORDERED: ROPIVACAINE 5 MG/ML 30 ML VIAL ONE (10:01)
[2025-02-11] MEDS ORDERED: TRANEXAMIC 1,000 MG/100ML-NACL PREMIX BAG ONE (10:01)
[2025-02-11] MEDS ORDERED: NEOSTIGMINE 1 MG/ML 10 ML VIAL ONE (10:01)
[2025-02-11] MEDS ORDERED: SUCCINYLCHOLINE CHLORIDE 200 MG/10 ML VIAL IV ONE (10:01)
[2025-02-11] MEDS ORDERED: HYDROmorphone (PF) 1 MG/ML ONE (10:01)
[2025-02-11] MEDS ORDERED: PHENYLEPHRINE 10 MG/ML VIAL ONE (10:01)
[2025-02-11] MEDS ORDERED: GLYCOPYRROLATE 0.2 MG/ML 2 ML VIAL ONE (10:01)
[2025-02-11] MEDS ORDERED: fentaNYL (PF) 50 MCG/ML 2 ML AMP ONE (10:01)
[2025-02-11] MEDS ORDERED: PROPOFOL 10 MG/ML 20 ML VIAL IV ONE (10:01)
[2025-02-11] MEDS ORDERED: LIDOCAINE 1% INJ 10MG/ML (20 ML MDV) ONE (10:01)
[2025-02-11] MEDS ORDERED: ROCURONIUM 10 MG/ML (5 ML VIAL) IV ONE (10:01)
[2025-02-11] MEDS: ceFAZolin 1,000 MG in SODIUM CHLORIDE 0.9% 1,000 ML IRRIGATION ONE (10:27)
[2025-02-11] MEDS: LACTATED RINGERS 1,000 ML IV ONE (11:30)
[2025-02-11] MEDS ORDERED: ACETAMINOPHEN TAB 325 MG TAB PO PRN (11:50)
[2025-02-11] MEDS ORDERED: HYDROcodone/APAP 5-325MG 1 EACH TAB PO PRN (11:50)
[2025-02-11] MEDS ORDERED: NALOXONE 0.4 MG/ML 1 ML VIAL IV PRN (11:50)
--- NOTE | 2025-02-11 12:08 | XR ---
EXAMINATION TYPE: XR Hip Limited LT, FL guidance operating room DATE OF EXAM: 02/11/2025 12:02 PM COMPARISON: Pre Operative Images if available both CT/MRI or plain film CLINICAL INDICATION: Male, 84 years old with history of LEFT ANTERIOR HIP; TECHNIQUE: XR Hip Limited LT, FL guidance operating room, multiple fluoroscopic images provided for p rocedure. DAP: 0.4851 mGym2 Gycm2 uGym2 cGycm2 or equivalent. FINDINGS: Fluoroscopic images during internal fixation/arthroplasty demonstrate hardware in appropriate positio n. Hardware appears intact. No immediate complication identified. IMPRESSION: 1. No evidence for intraoperative complication. 2. Please see the operative/procedural note for further details. [facility], , 02/11/2025 12:06 PM
[2025-02-11] MEDS: HYDROmorphone 0.5 MG/0.5 ML SYRINGE IVP PRN ×2 (12:33→15:48)
[2025-02-11] MEDS: LABETALOL SYRINGE 5 MG/ML (4 ML SYR) IVP ONE (13:27)
--- NOTE | 2025-02-11 14:13 | P.OP ---
Date of Procedure: 02/11/25 Preoperative Diagnosis: Painful left total hip arthroplasty Postoperative Diagnosis: Same in addition to psoas tendinitis Procedure(s) Performed: Left revision total hip arthroplastyfemoral head Left psoas tendon release Implants: DePuy 36 mm +1.5 cobalt chrome femoral head Anesthesia: PRIYA Surgeon: Hayder Harris Environmental Engineer #1: Tl Porter Estimated Blood Loss (ml): 150 Pathology: none sent Condition: stable Disposition: PACU Indications for Procedure: The patient is an 84-year-old male who underwent a left total hip arthroplasty 3 years ago who presents with a recent history of increasing left hip pain. Laboratory studies and bone scan showed no evidence of definite aseptic loosening. Clinically he has not had evidence of significant psoas irritation. A discussion of the risks and benefits of operative intervention was made with the patient. He opted to proceed with surgery. Operative risks include infection, neurovascular injury, development of blood clots, possible incomplete resolution of symptoms, possible worsening of symptoms and need for subsequent procedures was discussed. Informed consent was obtained. Operative Findings: As below Description of Procedure: Description of Procedure: The patient was brought to the operating room, and after induction of spinal anesthesia was placed supine on the Yovana table. Positioning was checked with fluoroscopy. The left hip was then prepped and draped in a normal fashion. A 12 cm incision was then made starting 2 fingerbreadths distal and 3 finger breaths posterior to the ASIS in line with the proximal femur. The skin was incised sharply. Subcutaneous tissues were divided sharply. Electrocautery was used for hemostasis. The fascia was split in line with skin incision. The interval between the sartorius and tensor fascia susan was then bluntly developed. The pseudocapsule was sharply excised. The hip was gently dislocated. The head was extracted. I then inspected the acetabulum. anterior and posterior retractors were placed. The remaining capsular labral tissue sharply debrided clearly defining the acetabular margins. The acetabular shell and its polyethylene liner both appeared stable and without appreciable wear. Pulsatile lavage was utilized. Attention was then paid towards the femoral component. The femoral component was fully exposed. There was some overhang of the collar. No gross loosening of the component was noted. The psoas tendon was then released from the lesser trochanter. A new 36+1.5 cobalt chrome femoral head was gently impacted. The hip was then gently reduced. Final fluoroscopic view showed adequate placement . Stability was checked with 80 of external rotation and 60 of extension of the right hip. I felt there was no further soft tissue impingement on the anterior acetabular rim or at the femoral collar. The wound was irrigated with sterile lavage. The fascia was closed with running 0 Vicryl suture. There was minimal drainage therefore a deep drain was not placed. The second dose of IV TXA was given. The subcutaneous tissues were reapproximated interrupted 2-0 Vicryl sutures. The skin was reapproximated with 3-0 subcuticular strata fix suture. Skin tape and adhesive was applied. A sterile dressing was applied. The patient was then awoken from sedation and transferred to recovery room in good condition. Blood loss was estimated at 150 mL. No complications were incurred. Sponge and needle counts were correct at the end of the case. Jorge Alberto ELDRIDGE assisted during the major components is case to include exposure, bone resection, implantation, and closure.
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
[2025-02-11] MEDS: ASPIRIN 81 MG PO SCH (19:59)
[2025-02-11] MEDS: LOSARTAN 25 MG TAB PO SCH (19:59)
[2025-02-11] MEDS: HYDROmorphone 1 MG/ML 1 ML SYRINGE IVP PRN (20:00)
[2025-02-11] MEDS: SENNOSIDES-DOCUSATE SODIUM 1 EACH TAB PO SCH (20:11)
[2025-02-11] MEDS: ONDANSETRON 4 MG/2 ML VIAL IVP PRN (20:31)
[2025-02-12 04:32] LABS: Basophils % (A) 0 %; Eosinophils % (A) 0 %; HCT 35.6 % (39.0-53.0); HGB 11.6 gm/dL (13.0-17.5); Hypochromasia Slight; Lymphocytes % (A) 8 %; MCH 28.6 pg (25.0-35.0); MCHC 32.6 g/dL (31.0-37.0); MCV 87.6 fL (80.0-100.0); Monocytes # (A) 0.7 k/uL (0-1.0); Monocytes % (A) 6 %; Neutrophils # (A) 9.9 k/uL (1.3-7.7); Neutrophils % (A) 85 %; Platelet Count 240 k/uL (150-450); RBC 4.06 m/uL (4.30-5.90); RDW 13.7 % (11.5-15.5); WBC 11.7 k/uL (3.8-10.6)
[2025-02-12] MEDS: HYDROcodone/APAP 7.5-325MG 1 EACH TAB PO PRN (08:19)
[2025-02-12] MEDS: METOPROLOL SUCCINATE (ER) 25 MG TAB.ER.24H PO SCH (08:20)
[2025-02-12] MEDS: MULTIVITAMINS, THERA 1 EACH TAB PO SCH (08:20)
[2025-02-12] MEDS: FAMOTIDINE 20 MG TAB PO SCH (08:20)
[2025-02-12 08:45] LABS: ALT 12 U/L (10-49); AST 26 U/L (14-35); Albumin 3.7 g/dL (3.8-4.9); Albumin/Globulin Ratio 2.06 Ratio (1.60-3.17); Alkaline Phosphatase 66 U/L (41-126); Blood Urea Nitrogen 25.2 mg/dL (9.0-27.0); Calcium 8.6 mg/dL (8.7-10.3); Carbon Dioxide 24.8 mmol/L (21.6-31.8); Chloride 100 mmol/L (96-109); Globulin 1.8 g/dL (1.6-3.3); Glucose 132 mg/dL (70-110); Magnesium 1.9 mg/dL (1.5-2.4); Sodium 135 mmol/L (135-145); Total Bilirubin 0.3 mg/dL (0.3-1.2); Total Protein 5.5 g/dL (6.2-8.2)
--- NOTE | 2025-02-12 11:19 | P.PN ---
Subjective Progress Note Date: 02/12/25 Principal diagnosis: Status post revision left total hip arthroplasty, femoral head, left psoas tendon release Patient is evaluated at bedside, he was up in his hospital chair speaking with case management. Patient feels the pain medication is helping, he is complaining of more anterior thigh and knee pain. He has been utilizing a walker for ambulation. He is hoping to stay in hospital for an additional night for pain control and also for assistance at home. Patient denies any headaches, lightheadedness, chest pain or shortness of breath. Patient was straight cathed, he has been urinating with minimal assistance since. Objective - Vital Signs Vital signs: Vital Signs Temp 97.6 F 02/12/25 07:02 Pulse 76 02/12/25 07:35 Resp 17 02/12/25 07:35 BP 120/77 02/12/25 07:02 Pulse Ox 96 02/12/25 07:02 FiO2 Intake & Output 02/11/25 02/12/25 02/12/25 18:59 06:59 18:59 Intake Total 2100 Output Total 150 800 Balance 195 - Weight 96.5 kg Intake: IV 2100 Output: Urine 800 Straight 800 Estimated Blood Loss 150 Other: # Voids 1 1 - Exam Left lower extremity: Incision is clean, dry, and intact. The exofin fusion tape is in good condition. There is minimal soft tissue swelling and ecchymosis surrounding the medial and lateral aspects of the incision. Calf is soft, no tenderness with palpation. Plantar flexion, dorsiflexion, EHL, FHL are intact. Sensory exam to light touch throughout the extremity is intact, dorsal pedis pulses 2+. - Labs CBC & Chem 7: 02/12/25 03:44 02/12/25 03:44 Labs: Abnormal Lab Results - Last 24 Hours (Table) 02/12/25 02/12/25 Range/Units 03:44 03:44 WBC 11.7 H (3.8-10.6) k/uL RBC 4.06 L (4.30-5.90) m/uL Hgb 11.6 L (13.0-17.5) gm/dL Hct 35.6 L (39.0-53.0) % Neutrophils # 9.9 H (1.3-7.7) k/uL BUN/Creatinine Ratio 21.00 H (12.00-20.00) Ratio Glucose 132 H (70-110) mg/dL Calcium 8.6 L (8.7-10.3) mg/dL Total Protein 5.5 L (6.2-8.2) g/dL Albumin 3.7 L (3.8-4.9) g/dL Assessment and Plan Assessment: Postoperative day #1 status post revision left total hip arthroplasty (femoral head), left psoas tendon release Acute blood loss anemia, surgical outcome Other medical comorbidities Plan: Pain control, continue with current medications DVT prophylaxis, continue aspirin 81 mg twice a day Monitor surgical dressing Ice and elevate left lower extremity Weight-bear as tolerated with walker PT/OT recommendations appreciated Encourage incentive spirometer Medical recommendations appreciated Discharge planning: Plan for discharge with home health care on 02/13/2025 Time with Patient: Less than 30
--- NOTE | 2025-02-12 13:09 | P.PN ---
Subjective Progress Note Date: 02/12/25 Hospital course: Patient is a pleasant 84-year-old male with a past medical history of paroxysmal atrial fibrillation not on anticoagulation, hypertension, hyperlipidemia, osteoarthritis, and hearing loss. He is currently admitted under orthopedic surgery team and is status post revision of left total hip arthroplasty and left psoas tendon release. Surgical procedure was completed by Dr. Harris secondary to painful left total hip arthroplasty and psoas tendinitis.. We were consulted for medical management throughout hospitalization. Physical exam: Patient was seen and fully evaluated at bedside this morning. He is currently doing well, postoperative day 1 status post revision of left hip. Patient reports he did require straight catheterization overnight but states since this morning he has been urinating without any difficulties and urinary retention has fully resolved. Patient reports moderate postoperative pain but currently controlled with current pain medication regimen. He denies having any headache, lightheadedness, dizziness, chest pain, palpitations, shortness of breath, nausea, vomiting, or any other complaints at this time. Vital signs reviewed and stable. General: Nontoxic, no distress and appears stated age. Derm: Skin warm and dry, normal coloration for ethnicity. Head: Atraumatic, normocephalic and symmetric. Eyes: EOM's intact, no lid lag, and anicteric sclera Mouth: no lip lesions, mucus membranes moist Cardiovascular: regular rate and rhythm with normal S1S2, soft systolic murmur, positive posterior tibial pulses bilaterally, and cap refill < 2 seconds. Lungs: Respirations even, regular, and unlabored on room air. Lungs CTA bilaterally, no rhonchi, no rales, no wheezing, and no accessory muscle usage. Abdominal: soft, nontender to palpation, no guarding, no appreciable organomegaly Ext: No gross muscle atrophy, no edema, no contractures. Movement and sensation intact. Postoperative dressing in place to left lateral hip. Neuro: Speech clear, face symmetrical and CN II-XII grossly intact with no noted focal neuro deficits Psych: Alert and oriented to person, place, time, and situation. Appropriate and pleasant affect. Assessment and Plan of Care: Status post status post revision of left total hip arthroplasty and left psoas tendon release. -Management per primary admitting orthopedic surgery team including DVT prophylaxis, pain management, wound/dressing management, advancement of activity including weightbearing, and PT/OT. -Currently DVT prophylaxis with 81 mg twice daily along with AMARJIT hose and SCDs. Postoperative urinary retention -Resolved. Acute postoperative blood loss anemia -This is a stable and expected finding. Hemoglobin 11.6. No need for transfusion or further intervention at this time. Leukocytosis -WBC count 11.7. Believed to be reactive to surgical procedure. No signs of infection. No need for further intervention at this time. Paroxysmal atrial fibrillation -Currently maintaining sinus mechanism, patient not on anticoagulation. -DVT prophylaxis to continue with aspirin 81 mg twice daily along with AMARJIT hose and SCDs. -Recommend telemetry monitoring throughout postoperative period. Hypertension -Monitor vital signs and continue daily medication regimen with losartan 25 mg twice daily and metoprolol succinate 25 mg daily. Data reviewed: -Vital signs reviewed. Blood pressure 120/77, heart rate 76, respiratory rate 17, temp 97.6 F, and SpO2 of 96% on room air -Reviewed postoperative labs. CBC showing mild leukocytosis with WBC count of 11.7, hemoglobin 11.6. BMP unremarkable. Blood glucose 132. Magnesium 1.9. Liver profile unremarkable with the exception of low total protein of 5.5 and albumin of 3.7. Thank you for allowing us to participate in the care of this pleasant patient. Do not hesitate to contact us with questions. Someone can be reached from the [facility] group all hours of the day at [phone] or via [employer]. Patient was seen independently by Nurse Practitioner. This document was prepared using [employer] dictation software. Please allow for errors in slasher machine operator while rare they do occur. Vinny Corea NP rendered care for this patient independently, reviewed the findings and plan as documented in the note above and agree with plan. I did not physically speak with or examine the patient on this date. Objective - Vital Signs Vital signs: Vital Signs Temp 99.4 F 02/12/25 00:59 Pulse 76 02/12/25 07:35 Resp 17 02/12/25 07:35 BP 108/64 02/12/25 00:59 Pulse Ox 99 02/12/25 00:59 FiO2 Intake & Output 02/11/25 02/12/25 02/12/25 18:59 06:59 18:59 Intake Total 2100 Output Total 150 800 Balance 1950 - Weight 96.5 kg Intake: IV 2100 Output: Urine 800 Straight 800 Estimated Blood Loss 150 Other: # Voids 1 1 - Labs CBC & Chem 7: 02/12/25 03:44 02/12/25 03:44 Labs: Abnormal Lab Results - Last 24 Hours (Table) 02/12/25 Range/Units 03:44 WBC 11.7 H (3.8-10.6) k/uL RBC 4.06 L (4.30-5.90) m/uL Hgb 11.6 L (13.0-17.5) gm/dL Hct 35.6 L (39.0-53.0) % Neutrophils # 9.9 H (1.3-7.7) k/uL
[2025-02-13 08:32] LABS: BUN/Creat Ratio 21.07 Ratio (12.00-20.00); Blood Urea Nitrogen 29.5 mg/dL (9.0-27.0); Calcium 8.9 mg/dL (8.7-10.3); Carbon Dioxide 26.5 mmol/L (21.6-31.8); Chloride 103 mmol/L (96-109); Glucose 114 mg/dL (70-110); Potassium 5.1 mmol/L (3.5-5.5); Sodium 138 mmol/L (135-145)
[2025-02-13 08:53] LABS: HCT 36.6 % (39.6-50.0); HGB 11.6 g/dL (13.0-17.0); MCH 28.2 pg (27.0-32.0); MCHC 31.7 g/dL (32.0-37.0); MCV 88.8 FL (80.0-97.0); Mean Platelet Volume 9.6 FL (9.5-12.2); NRBC Per 100 WBC 0 X 10*3/uL (0.00-0.01); Platelet Count 243 X 10*3/uL (140-440); RBC 4.12 X 10*6/uL (4.40-5.60); RDW 13.8 % (11.5-14.5); WBC 11.51 X 10*3/uL (4.50-10.00)
--- NOTE | 2025-02-13 09:48 | P.PN ---
Subjective Progress Note Date: 02/13/25 Principal diagnosis: Status post revision left total hip arthroplasty, femoral head, left psoas tendon release Patient is evaluated at bedside, he was visualized working with physical therapy today. On the anterior aspect of the left thigh. He is worried about doing the stairs at home due to the discomfort in the left anterior thigh. After discussion with physical therapy he did improve since yesterday. Patient continues to urinate with no difficulty. Patient denies any headaches, lightheadedness, chest pain or shortness of breath. Objective - Vital Signs Vital signs: Vital Signs Temp 98.5 F 02/13/25 07:00 Pulse 76 02/13/25 07:00 Resp 18 02/13/25 07:00 BP 110/60 02/13/25 07:00 Pulse Ox 99 02/13/25 07:00 FiO2 Intake & Output 02/12/25 02/13/25 02/13/25 18:59 06:59 18:59 Intake Total 1100 Balance 1100 Intake: Oral 1100 Other: Voiding Method Toilet # Voids 3 1 - Exam Left lower extremity: Incision is clean, dry, and intact. The exofin fusion tape is in good condition. There is minimal soft tissue swelling and ecchymosis surrounding the medial and lateral aspects of the incision. Calf is soft, no tenderness with palpation. Plantar flexion, dorsiflexion, EHL, FHL are intact. Sensory exam to light touch throughout the extremity is intact, dorsal pedis pulses 2+. - Labs CBC & Chem 7: 02/13/25 05:53 02/13/25 05:53 Labs: Abnormal Lab Results - Last 24 Hours (Table) 02/13/25 02/13/25 Range/Units 05:53 05:53 WBC 11.51 H (4.50-10.00) X 10*3/uL RBC 4.12 L (4.40-5.60) X 10*6/uL Hgb 11.6 L (13.0-17.0) g/dL Hct 36.6 L (39.6-50.0) % MCHC 31.7 L (32.0-37.0) g/dL BUN 29.5 H (9.0-27.0) mg/dL Est GFR (CKD-EPI) 50 L (>=60) BUN/Creatinine Ratio 21.07 H (12.00-20.00) Ratio Glucose 114 H (70-110) mg/dL Assessment and Plan Assessment: Postoperative day #2 status post revision left total hip arthroplasty (femoral head), left psoas tendon release Acute blood loss anemia, surgical outcome Other medical comorbidities Plan: Pain control, continue with current medications DVT prophylaxis, continue aspirin 81 mg twice a day Monitor surgical dressing Ice and elevate left lower extremity Weight-bear as tolerated with walker PT/OT recommendations appreciated Encourage incentive spirometer Medical recommendations appreciated Discharge planning: Would like patient to stay in the hospital for an additional night to work with physical therapy with plan for discharge to home with home health care, patient is trying to avoid subacute rehab placement. Time with Patient: Less than 30
--- NOTE | 2025-02-13 12:25 | P.PN ---
Subjective Progress Note Date: 02/13/25 Hospital course: Patient is a pleasant 84-year-old male with a past medical history of paroxysmal atrial fibrillation not on anticoagulation, hypertension, hyperlipidemia, osteoarthritis, and hearing loss. He is currently admitted under orthopedic surgery team and is status post revision of left total hip arthroplasty and left psoas tendon release. Surgical procedure was completed by Dr. Harris secondary to painful left total hip arthroplasty and psoas tendinitis.. We were consulted for medical management throughout hospitalization. Physical exam: Patient was seen and fully evaluated at bedside this morning. He is currently doing well, postoperative day 2 status post revision of left hip. Patient reports continued difficulties with ambulation and unable to do stairs today. He reports postoperative pain is controlled with current pain medication regimen and currently rates 3 out of 10 at this time. He denies any urinary retention and denies having any nausea or vomiting. Patient tolerating oral intake well. Denies having any dizziness, lightheadedness, dizziness, chest pain, palpitations, or shortness of breath. Vital signs reviewed and stable. General: Nontoxic, no distress and appears stated age. Derm: Skin warm and dry, normal coloration for ethnicity. Head: Atraumatic, normocephalic and symmetric. Eyes: EOM's intact, no lid lag, and anicteric sclera Mouth: no lip lesions, mucus membranes moist Cardiovascular: regular rate and rhythm with normal S1S2, soft systolic murmur, positive posterior tibial pulses bilaterally, and cap refill < 2 seconds. Lungs: Respirations even, regular, and unlabored on room air. Lungs CTA bilaterally, no rhonchi, no rales, no wheezing, and no accessory muscle usage. Abdominal: soft, nontender to palpation, no guarding, no appreciable organomeg luis alfredo Ext: No gross muscle atrophy, no edema, no contractures. Movement and sensation intact. Postoperative dressing in place to left lateral hip. Neuro: Speech clear, face symmetrical and CN II-XII grossly intact with no noted focal neuro deficits Psych: Alert and oriented to person, place, time, and situation. Appropriate and pleasant affect. Assessment and Plan of Care: Status post status post revision of left total hip arthroplasty and left psoas tendon release. -Management per primary admitting orthopedic surgery team including DVT prophylaxis, pain management, wound/dressing management, advancement of activity including weightbearing, and PT/OT. -Currently DVT prophylaxis with 81 mg twice daily along with AMARJIT hose and SCDs. Postoperative urinary retention -Resolved. Acute postoperative blood loss anemia -This is a stable and expected finding. Hemoglobin 11.6. No need for transfusion or further intervention at this time. Leukocytosis -WBC count 11.7. Believed to be reactive to surgical procedure. No signs of infection. No need for further intervention at this time. Paroxysmal atrial fibrillation -Currently maintaining sinus mechanism, patient not on anticoagulation. -DVT prophylaxis to continue with aspirin 81 mg twice daily along with AMARJIT hose and SCDs. -Recommend telemetry monitoring throughout postoperative period. Hypertension -Monitor vital signs and continue daily medication regimen with losartan 25 mg twice daily and metoprolol succinate 25 mg daily. Data reviewed: -Vital signs reviewed. Blood pressure 110/60, heart rate 76, respiratory rate 18, temp 98.5 F, and SpO2 of 99% on room air. -Morning labs reviewed. CBC showing mild leukocytosis with WBC count of 11.51, hemoglobin stable at 11.6. BMP showing no significant abnormalities. Blood glucose 114. Magnesium 2.0. Thank you for allowing us to participate in the care of this pleasant patient. Do not hesitate to contact us with questions. Someone can be reached from the [facility] group all hours of the day at [phone] or via [employer]. Patient was seen independently by Nurse Practitioner. This document was prepared using [employer] dictation software. Please allow for errors in records officer while rare they do occur. Vinny Corea NP rendered care for this patient independently, reviewed the findings and plan as documented in the note above and agree with plan. I did not physically speak with or examine the patient on this date. Objective - Vital Signs Vital signs: Vital Signs Temp 98.5 F 02/13/25 07:00 Pulse 76 02/13/25 07:00 Resp 18 02/13/25 07:00 BP 110/60 02/13/25 07:00 Pulse Ox 99 02/13/25 07:00 FiO2 Intake & Output 02/12/25 02/13/25 02/13/25 18:59 06:59 18:59 Intake Total 1100 Balance 1100 Intake: Oral 1100 Other: Voiding Method Toilet # Voids 3 1 - Labs CBC & Chem 7: 02/13/25 05:53 02/13/25 05:53 Labs: Abnormal Lab Results - Last 24 Hours (Table) 02/13/25 Range/Units 05:53 BUN 29.5 H (9.0-27.0) mg/dL Est GFR (CKD-EPI) 50 L (>=60) BUN/Creatinine Ratio 21.07 H (12.00-20.00) Ratio Glucose 114 H (70-110) mg/dL
[2025-02-14 09:18] VITALS: RESP 18
--- NOTE | 2025-02-14 10:59 | P.PN ---
Subjective Progress Note Date: 02/14/25 Principal diagnosis: Painful left total hip arthroplasty Patient was seen at bedside this morning sitting up in chair with dressing present over left hip. Patient says recovery is going well and he has been progressing the past couple days since surgery. Patient says he does have a walker for home. Patient says he has been urinating since surgery without issue. Patient looking forward to working with PT/OT today. Patient denies any other issues at this time. Objective - Vital Signs Vital signs: Vital Signs Temp 97.5 F L 02/14/25 07:25 Pulse 64 02/14/25 07:25 Resp 18 02/14/25 07:25 BP 162/77 02/14/25 07:25 Pulse Ox 99 02/14/25 07:25 FiO2 Intake & Output 02/13/25 02/14/25 02/14/25 18:59 06:59 18:59 Other: Voiding Method Toilet # Voids 3 2 - Exam Left hip: Incision is clean, dry, and intact. The exofin fusion tape is in good condition. There is minimal soft tissue swelling and ecchymosis surrounding the medial and lateral aspects of the incision. Calf is soft, no tenderness with palpation. Plantar flexion, dorsiflexion, EHL, FHL are intact. Sensory exam to light touch throughout the extremity is intact, dorsal pedis pulses 2+. - Labs CBC & Chem 7: 02/13/25 05:53 02/13/25 05:53 Assessment and Plan Assessment: 1. Painful left total hip arthroplasty -Postop day #3 status post -Left revision total hip arthroplastyfemoral head; Left psoas tendon release Plan: 1. Painful left total hip arthroplasty; psoas tendinitis -surgery performed 02/11/2025left revision total hip arthroplastyfemoral head; left psoas tendon release. Patient stable at bedside this morning. Patient has been progressing daily with PT/OT. Patient has been urinating without issue. Dressing appears to be clean, dry, intact. Pain under well-controlled. Patient does have walker at home. Discharge home today with health services. 2. Appreciate medical management 3. Pain management -[place] 4. DVT prophylaxis -aspirin 81 mg twice daily 5. GI prophylaxis -senna 6. PT/OT -weightbearing as tolerated walker with walker 7. Encourage incentive spirometer use 8. Discharge planning -discharge home today with health services Time with Patient: Less than 30
--- NOTE | 2025-02-14 11:04 | P.DS ---
Providers Date of admission: 02/11/25 08:02 Expected date of discharge: 02/14/25 Attending physician: Hayder Harris Consults: 02/11/25 11:54 Consult Physician Routine Consulting Provider: Camille Murphy Consult Reason/Comments: Medical Management Do you want consulting provider notified?: Yes Primary care physician: Stated None Hospital Course: Date of admission: 02/11/2025 Date of discharge: 02/14/2025 Admission diagnosis: Painful left total hip arthroplasty Discharge diagnosis: Painful left total hip arthroplasty and psoas tendinitis Attending physician: Dr. Harris Surgical procedures: Left revision total hip arthroplastyfemoral head; left psoas tendon release Brief history: Patient is a 84-year-old male with a history of painful left total hip arthroplasty and psoas tendinitis. At this point patient has failed conservative treatment measures and has opted to proceed with a elective psoas tendon release and revision left total hip arthroplastyfemoral head. Hospital course: Details of patient's surgery can be found in operative report. Patient tolerated the procedure well and was subsequently transported to orthopedic floor. Patient's orthopeidc and medical care was provided daily. Patient had daily laboratory tests performed for evaluation of overall blood counts. Patient had daily physical therapy to include strengthening range of motion as well as education with walker ambulation. Patient was treated with aspirin for their postoperative DVT prophylaxis during their inpatient stay. Patient was noted to have a relatively uneventful postoperative course. Patient reported satisfactory pain control with oral pain medications by postoperative day 3. Patient showed satisfactory progress with physical therapy. Patient moved steadily through the program and had no difficulty meeting the goals by postoperative day 3. Given patient's otherwise satisfactory course and having met physical therapy goals, plan is to discharge patient home with health services on postoperative day 3. Discharge condition/disposition: Patient will be discharged home with health services in stable condition. Discharge medications: Instructions are given on resumption of patient's normal daily medications per primary care recommendation, in addition patient will be prescribed [place]; senna; take aspirin 81 mg twice daily at home for DVT prophylaxis.. Discharge instructions: 1. Wound care and infection precautions, keep incision dry and covered while showering, no lotions, creams, moisturizers. No soaking, tubs, pools, hottubs. Do not scrub over the incision. 2. Weight-bear as tolerated with walker / cane until follow-up. 3. Ice and elevate when necessary. Do not exceed 20 minutes per hour with ice pack. 4. Utilize compression sleeve until seen at first follow up appointment. 5. Visiting nursing care. 6. Home physical therapy. 7. Pain meds and anticoagulants per prescription. 8. Pain medication has potential to cause constipation. Increase oral fluid and fiber intake. Contact primary care provider if you have not had a bowel movement within 48 hours after discharge 9. No anti-inflammatory medication until discussed at first post operative visit, this including Motrin, Aleve, Mobic, Diclofenac. 10. Follow up in office at 2 weeks postop with Jorge Alberto Porter PA-C / Riky Dunham PA-C 11. Follow up with your primary care doctor 7-10 days after discharge. 12. Contact [facility] with any questions, . Assessment: Painful left total hip arthroplasty; psoas tendinitis Procedures: Left revision total hip arthroplastyfemoral head Left psoas tendon release Patient Condition at Discharge: Good Plan - Discharge Summary Discharge Rx Participant: Yes New Discharge Prescriptions: New HYDROcodone/APAP 7.5-325MG [[place] 7.5-325] 1 - 2 tab PO Q6HR PRN #36 tab PRN Reason: Pain Sennosides/Docusate Sodium [Senna Plus 8.6-50 mg Softgel] 1 each PO DAILY #20 capsule Continue Multivitamins, Thera [Multivitamin (formulary)] 1 tab PO DAILY Acetaminophen [Tylenol Extra Strength] 500 - 1,000 mg PO BID PRN PRN Reason: Pain Aspirin [Adult Low Dose Aspirin EC] 81 mg PO BID Metoprolol Succinate (ER) [Toprol XL] 25 mg PO DAILY Losartan [Cozaar] 25 mg PO BID Discharge Medication List Metoprolol Succinate (ER) [Toprol XL] 25 mg PO DAILY 06/27/22 [History] Multivitamins, Thera [Multivitamin (formulary)] 1 tab PO DAILY 06/27/22 [History] Acetaminophen [Tylenol Extra Strength] 500 - 1,000 mg PO BID PRN 11/30/23 [History] Aspirin [Adult Low Dose Aspirin EC] 81 mg PO BID 01/30/25 [History] Losartan [Cozaar] 25 mg PO BID 01/30/25 [History] HYDROcodone/APAP 7.5-325MG [[place] 7.5-325] 1 - 2 tab PO Q6HR PRN #36 tab 02/14/25 [Rx] Sennosides/Docusate Sodium [Senna Plus 8.6-50 mg Softgel] 1 each PO DAILY #20 capsule 02/14/25 [Rx] Follow up Appointment(s)/Referral(s): Riky Dunham, PAC [PHYSICIAN PROCUREMENT ENGINEER] - 02/26/25 10:30 am [facility] [NON-STAFF] - 1 Week Activity/Diet/Wound Care/Special Instructions: Orthopedic Discharge Instructions: 1. Wound care and infection precautions, keep incision dry and covered while showering, no lotions, creams, moisturizers. No soaking, pools, hot tubs. Do not scrub over incision. 2. Weight-bear as tolerated with walker / cane until follow-up. 3. Ice and elevate when necessary. Do not exceed 20 minutes per hour with ice pack. 4. Utilize compression sleeve until seen at first follow up appointment. 5. Pain meds and anticoagulants per prescription. 6. Pain medication has potential to cause constipation. Increase oral fluid and fiber intake. Contact primary care provider if you have not had a bowel movement within 48 hours after discharge. 7. No anti-inflammatory medication until discussed at first post operative visit, this including Motrin, Aleve, Mobic, Diclofenac. 8. Follow up in office at 2 weeks postop with Jorge Alberto Porter PA-C/Riky Dunham PA-C 9. Follow up with your primary care doctor 7-10 days after discharge. 10. Contact [facility] with any questions, . [employer] commission - call them they might be able to help you with a ramp. - Discharge Disposition: HOME WITH HOME HEALTH SERVICES
[2025-02-14 12:30] VITALS: BP 115/75; PULSE 77; TEMP 98.4
--- NOTE | 2025-02-14 13:51 | P.PN ---
Subjective Progress Note Date: 02/14/25 Hospital course: Patient is a pleasant 84-year-old male with a past medical history of paroxysmal atrial fibrillation not on anticoagulation, hypertension, hyperlipidemia, osteoarthritis, and hearing loss. He is currently admitted under orthopedic surgery team and is status post revision of left total hip arthroplasty and left psoas tendon release. Surgical procedure was completed by Dr. Harris secondary to painful left total hip arthroplasty and psoas tendinitis.. We were consulted for medical management throughout hospitalization. Physical exam: Patient was seen and fully evaluated at bedside this morning. He is currently doing well, postoperative day 3 status post revision of left hip. Patient sitting at bedside talking with niece, he reports feeling better today and feels as though he is ready to go home. He reports continued postoperative pain but controlled with current pain medication regimen and denies having any other questions, needs, complaints, or concerns at this time Vital signs reviewed and stable. General: Nontoxic, no distress and appears stated age. Derm: Skin warm and dry, normal coloration for ethnicity. Head: Atraumatic, normocephalic and symmetric. Eyes: EOM's intact, no lid lag, and anicteric sclera Mouth: no lip lesions, mucus membranes moist Cardiovascular: regular rate and rhythm with normal S1S2, soft systolic murmur, positive posterior tibial pulses bilaterally, and cap refill < 2 seconds. Lungs: Respirations even, regular, and unlabored on room air. Lungs CTA bilaterally, no rhonchi, no rales, no wheezing, and no accessory muscle usage. Abdominal: soft, nontender to palpation, no guarding, no appreciable organomegaly Ext: No gross muscle atrophy, no edema, no contractures. Movement and sensation intact. Postoperative dressing in place to left lateral hip. Neuro: Speech clear, face symmetrical and CN II-XII grossly intact with no noted focal neuro deficits Psych: Alert and oriented to person, place, time, and situation. Appropriate and pleasant affect. Assessment and Plan of Care: Status post status post revision of left total hip arthroplasty and left psoas tendon release. -Management per primary admitting orthopedic surgery team including DVT prophylaxis, pain management, wound/dressing management, advancement of activity including weightbearing, and PT/OT. -Currently DVT prophylaxis with 81 mg twice daily along with AMARJIT hose and SCDs. Postoperative urinary retention -Resolved. Acute postoperative blood loss anemia -This is a stable and expected finding. Hemoglobin 11.6. No need for transfusion or further intervention at this time. Leukocytosis -WBC count 11.7. Believed to be reactive to surgical procedure. No signs of infection. No need for further intervention at this time. Paroxysmal atrial fibrillation -Currently maintaining sinus mechanism, patient not on anticoagulation. -DVT prophylaxis to continue with aspirin 81 mg twice daily along with AMARJIT hose and SCDs. -Recommend telemetry monitoring throughout postoperative period. Hypertension -Monitor vital signs and continue daily medication regimen with losartan 25 mg twice daily and metoprolol succinate 25 mg daily. Data reviewed: -Vital signs reviewed. Blood pressure 162/77, heart rate 64, respiratory rate 18, temp 97.5 F, and SpO2 of 99% on room air. -Labs reviewed. CBC showing mild leukocytosis with WBC count of 11.51, hemoglobin stable at 11.6. BMP showing no significant abnormalities. Blood glucose 114. Magnesium 2.0. Thank you for allowing us to participate in the care of this pleasant patient. Do not hesitate to contact us with questions. Someone can be reached from the [facility] hospitalist group all hours of the day at [phone] or via [employer]. Patient was seen independently by Nurse Practitioner. This document was prepared using [employer] dictation software. Please allow for errors in gis analyst developer while rare they do occur. Vinny Corea NP rendered care for this patient independently, reviewed the findings and plan as documented in the note above and agree with plan. I did not physically speak with or examine the patient on this date. Objective - Vital Signs Vital signs: Vital Signs Temp 97.5 F L 02/14/25 07:25 Pulse 64 02/14/25 07:25 Resp 18 02/14/25 07:25 BP 162/77 02/14/25 07:25 Pulse Ox 99 02/14/25 07:25 FiO2 Intake & Output 02/13/25 02/14/25 02/14/25 18:59 06:59 18:59 Other: Voiding Method Toilet # Voids 3 2 - Labs CBC & Chem 7: 02/13/25 05:53 02/13/25 05:53
== END 2025-02-14 15:16 | disposition home health service (06) | DRG 467 ==
LOC: 2ORMAIN 02-11 08:02 → 4SSUR 02-11 13:31
PROVIDERS: ADMIT Orthopaedic Surgery; ATTEND Orthopaedic Surgery
PROC: 0SPS0JZ Removal of Synthetic Substitute from Left Hip Joint, Femoral Surface, Open Approach (ICD-10-PCS; 2025-02-11)
PROC: 0LNK0ZZ Release Left Hip Tendon, Open Approach (ICD-10-PCS; 2025-02-11)
PROC: 0SRS01Z Replacement of Left Hip Joint, Femoral Surface with Metal Synthetic Substitute, Open Approach (ICD-10-PCS; principal; 2025-02-11 10:05)
DX: T84.84XA Pain due to internal orthopedic prosthetic devices, implants and grafts, initial encounter (principal); D62 Acute posthemorrhagic anemia; I10 Essential (primary) hypertension; I48.0 Paroxysmal atrial fibrillation; H91.90 Unspecified hearing loss, unspecified ear; M76.12 Psoas tendinitis, left hip; Y79.2 Prosthetic and other implants, materials and accessory orthopedic devices associated with adverse incidents; Z96.641 Presence of right artificial hip joint; Z87.891 Personal history of nicotine dependence; Z79.82 Long term (current) use of aspirin; Z79.899 Other long term (current) drug therapy
CPT/HCPCS: 64473; 73501; 80048; 80053; 83735; 85025; 85027; 86850; 86900; 86901